=== PATIENT | male | born 1990 | race Caucasian/White ===

== ENCOUNTER 2021-03-16 16:34 | Emergency (ER) | payer OTHER, SELFPAY ==
[2021-03-16 16:38] VITALS: BP 144/99; PULSE 118; RESP 18; TEMP 37; O2SAT 99
[2021-03-16] MEDS: ZIPRASIDONE HCL 20 MG CAPSULE BY MOUTH (17:07)
--- NOTE | 2021-03-16 17:10 | PC.NURSE ---
PT WONDERING HALLS, PT ASKED TO REMAIN IN HIS ROOM PT LOOKING AROUND PARANOID AND CONTINUES TO SAY HE IS NOT SAFE AND SOMEONE IS GOING TO KILL HIM. PT WALKED TO BATHROOM TO ATTEMPT TO OBTAIN URINE SAMPLE, PT UNABLE TO PROVIDE AT THIS TIME.
[2021-03-16 17:29] LABS: Basophils Absolute Auto 0.04 K/mm3 (0.00-0.10); Basophils Percent Auto 0.4 % (0.0-1.0); Eosinophils Absolute Auto 0.07 K/mm3 (0.02-0.50); Eosinophils Percent Auto 0.7 % (1.0-6.0); Hemoglobin 14.3 g/dL (14.0-18.0); Immature Granulocyte Absolute 0.03 K/mm3 (0.00-0.00); Immature Granulocyte Percent A 0.3 % (0.0-0.0); Lymphocytes Absolute Auto 2.48 K/mm3 (1.10-4.50); Lymphocytes Percent Auto 23.6 % (18.0-42.0); Mean Corpuscular Hemoglobin 28.2 pg (27.0-31.0); Mean Corpuscular Volume 82.8 fL (78.0-102.0); Mean Platelet Volume 8.7 fl (8.7-11.0); Monocytes Absolute Auto 1.33 K/mm3 (0.10-0.90); Monocytes Percent Auto 12.7 % (2.0-11.0); Neutrophils Absolute Auto 6.6 K/mm3 (1.7-7.2); Neutrophils Percent Auto 62.3 % (50.0-70.0); Platelet Count Result 286 K/mm3 (150-420); Red Blood Count 5.07 M/mm3 (4.70-6.10); Red Cell Distribution Width 12.7 % (11.6-14.4); White Blood Count 10.5 K/mm3 (4.8-10.8)
--- NOTE | 2021-03-16 17:45 | PC.NURSE ---
PT CALLING 911 FROM HIS CELL PHONE BECAUSE HE STATES HE IS NOT SAFE HERE AND WANTS TO LEAVE AND GO SOMEWHERE ELSE. PT SPEAKING WITH [place] [id number], THIS RN WITH PT TO MAKE DISPATCHER AWARE PT IS INDEED SAFE AND NOT IN ANY HARMS WAY. CALL TRANSFERRED TO [facility] AND REQUEST FOR OFFICER TO COME TO ED TO SPEAK WITH PT MADE. [place] [id number] MECHANICAL DEVELOPMENT ENGINEER STAYED ON PHONE AND SPOKE WITH PT UNTIL PD ARRIVED.
[2021-03-16 17:51] LABS: Acetaminophen < 2 ug/mL (10-30); Alanine Aminotransferase 24 U/L (16-63); Albumin Level 4.4 g/dL (3.4-5.0); Alkaline Phosphatase 71 U/L (46-116); Anion Gap 11 mmol/L (8-16); Aspartate Amino Transferase 16 U/L (15-37); Bilirubin,Total 0.9 mg/dL (0.00-1.00); Blood Urea Nitrogen 26 mg/dL (7-18); Calcium 9.5 mg/dL (8.5-10.1); Carbon Dioxide 27 mmol/L (21-32); Chloride 103 mmol/L (98-108); Estimated Glomerular Filt Rate > 60; Ethanol < 3 mg/dL (0-6); Glucose 116 mg/dL (70-99); Osmolality Calculated 297 mOsm/kg (285-295); Potassium 3.9 mmol/L (3.5-5.1); Salicylate 0.8 mg/dL (2.8-20.0); Sodium 141 mmol/L (136-145)
[2021-03-16 18:11] LABS: Thyroid Stimulating Hormone 0.97 uIU/mL (0.36-3.74)
[2021-03-16 18:21] LABS: Appearance Urine Clear (Clear); Bilirubin Urine 1+ (Negative); Color Urine Yellow (Yellow); Glucose Urine UA Negative (Negative); Ketones Urine 2+ (Negative); Leukocyte Esterase Ur Negative (Negative); Nitrate Urine Negative (Negative); Protein Urine Negative (Negative); Specific Grav Ur >= 1.030 (1.010-1.020); Urobilinogen Urine 0.2 mg/dL (0.2-1.0); pH Urine 5.5 (5.0-8.0)
[2021-03-16 18:27] LABS: Add Urine Microscopic? YES; Bacteria Urine Trace /hpf; Blood Urine Trace (Negative); Mucus Urine Moderate /lpf; RBC Urine 0-2 /hpf (0-2); WBC Urine 0-3 /hpf (0-3)
[2021-03-16 18:28] LABS: Amphetamine Screen Urine Positive (Negative); Barbiturate Screen Urine Negative (Negative); Benzodiazepines Screen Urine Negative (Negative); Cannabinoid Screen Urine Positive (Negative); Cocaine Screen Urine Negative (Negative); Methadone Screen Urine Negative (Negative); Opiate Screen Urine Negative (Negative); Phencyclidine Screen Urine Negative (Negative)
--- NOTE | 2021-03-16 18:44 | PC.NURSE ---
PT SITTING IN CHAIR AT DOORWAY, PT TEARFUL AND KEEPS LOOK AROUND. PT AWARE MENTAL HEALTH WAS CONTACTED.
--- NOTE | 2021-03-16 19:04 | PC.NURSE ---
REPORT TO DEMETRIA VELAZQUEZ
[2021-03-16 19:10] VITALS: BP 133/88; PULSE 89; RESP 20; TEMP 36.5; O2SAT 99
--- NOTE | 2021-03-16 19:15 | PC.NURSE ---
Report received, pt sitting in doorway and then pacing room, pt tearful at this time and speaking in nonsensical sentences. Reoriented pt to POC and awaiting mental health services for eval.
[2021-03-16 20:05] LABS: SARS-CoV-2 Ag Negative (Negative)
--- NOTE | 2021-03-16 20:09 | ED.PSYCH ---
HPI - Psych General Chief Complaint: Psychiatric Symptoms Stated Complaint: AMB Time Seen by Provider: 03/16/21 16:36 Source: patient, EMS and RN notes reviewed Mode of arrival: EMS Limitations: no limitations History of Present Illness complaint: feels depressed and other (and paranoid) Onset (ago): day(s) (1) History of same: Yes Relieving factors: none Exacerbating factors: none Context: recent drug abuse Associated psychiatric symptoms: depression, racing thoughts and visual hallucinations Associated symptoms: confusion Treatments prior to arrival: none Related Data Home Medications Medication Instructions Recorded Confirmed citalopram 40 mg PO DAILY 03/16/21 03/16/21 multivitamin with folic acid 1 tablet PO DAILY 03/16/21 03/16/21 [Daily-Fatou (with folic acid)] trazodone 100 mg PO HS 03/16/21 03/16/21 Allergies Allergy/AdvReac Type Severity Reaction Status Date / Time No Known Allergies Allergy Unknown Unverified 02/25/16 17:46 Review of Systems Review of Systems: All systems reviewed & are unremarkable except as noted in HPI and below PMFSH Past Medical History Medical History Schizophrenia, acute undifferentiated Family History Family History Other Schizophrenia, acute undifferentiated Social History Social History Substance use type: amphetamines Exam Const: General: no acute distress and alert Orientation/consciousness: patient oriented x3 HENMT: Head: normal to inspection Ears: TM's normal bilaterally General nose exam: Normal external nose present and Normal nares present Mouth: Yes lip normal and Yes moist mucous membranes abnormal Teeth and gingiva: dentition normal Eyes: Conjunctivae: conjunctivae normal Pupils: Equal, round and reactive pupils present EOM: EOMs intact bilaterally Neck: Neck: normal visual inspection and no lymphadenopathy Chest: Chest palpation & inspection: normal inspection of the chest Resp: Effort & Inspection: normal respiratory effort Auscultation: clear to auscultation bilaterally Cardio: Rate: regular rate Rhythm: regular rhythm GI: GI Palp: Yes Soft to palpation (non-tender) Percussion: Yes normal to percussion : General: Yes no CVA tenderness Male General Exam: Yes normal external exam Testes: Testes normal Back/Spine/Pelvis: Back: no CVA tenderness Skin: General skin exam: normal color Neuro: General: patient oriented x3, moves all extremities, no meningeal signs, no focal motor deficits and CN's II-XI intact bilaterally Extrem: General: normal to inspection and no pedal edema Psych: Appearance: grossly normal and well kempt Thought content: Yes Paranoid delusions present and Yes Hallucination(s) present Course Course Emergency Course: pt was less talkative and paranoid during the ED stay. Reevaluation(s) Date: 03/16/21 Time: 17:35 Vital Signs Vital signs: Vital Signs Temperature 37.0 C 03/16/21 16:38 Pulse Rate 118 H 03/16/21 16:38 Respiratory Rate 18 03/16/21 16:38 Blood Pressure 144/99 H 03/16/21 16:38 Pulse Oximetry 99 03/16/21 16:38 Temperature 36.5 C 03/16/21 19:10 Pulse Rate 89 03/16/21 19:10 Respiratory Rate 20 03/16/21 19:10 Blood Pressure 133/88 03/16/21 19:10 Pulse Oximetry 99 03/16/21 19:10 MDM - Psych Differential Diagnosis Differential diagnosis: Likely acute psychosis, chronic schizophrenia, depression and acute anxiety Medical Records Attestation: I reviewed the patient's medical records. Lab Data Attestation: I reviewed the patient's lab results. Result diagrams: 03/16/21 17:22 03/16/21 17:22 Labs: Lab Results 03/16/21 03/16/21 03/16/21 Range/Units 17:22 17:22 18:17 WBC 10.5 (4.8-10.8) K/mm3 RBC 5.07 (4.70-6.10) M/mm3 Hgb 14.3 (14.0-18.0)
--- NOTE | 2021-03-16 20:22 | PC.NURSE ---
Call back from [place] and report given, paperwork and pts chart faxed to [facility].
[2021-03-16 21:30] VITALS: BP 130/85; PULSE 78; RESP 18; O2SAT 99
--- NOTE | 2021-03-16 23:06 | PC.NURSE ---
Pt is sleeping, sitter at bedside. Call back from Cherelle from [facility] and still looking for placement and acceptance for pt.
[2021-03-16 23:44] VITALS: BP 130/78; PULSE 81; RESP 18; TEMP 36.6; O2SAT 99
--- NOTE | 2021-03-16 23:53 | ECG_ITS ---
Measurements Intervals [place] Rate: 74 P: 74 WI: 183 QRS: 62 QRSD: 104 T: 41 QT: 421 QTc: 470 Interpretive Statements SINUS RHYTHM NORMAL ECG Electronically Signed On 03-17-2021 7:55:44 CDT by Merrill Gamez D.O.
--- NOTE | 2021-03-17 01:28 | PC.NURSE ---
Pt continues to sleep, close observation watching.
[2021-03-17 01:51] VITALS: BP 128/74; PULSE 77; RESP 18; TEMP 36.1; O2SAT 99
--- NOTE | 2021-03-17 04:15 | PC.NURSE ---
Pt sleeping, see sitter protocol obs sheet.
--- NOTE | 2021-03-17 06:25 | PC.NURSE ---
Pt still sleeping, no changes.
[2021-03-17 06:37] VITALS: BP 100/68; PULSE 65; RESP 18; TEMP 36.6; O2SAT 98
--- NOTE | 2021-03-17 06:45 | PC.NURSE ---
Pt awake and ambulatory to [facility]. EMS paged for pt transfer.
--- NOTE | 2021-03-17 07:13 | PC.NURSE ---
Report to [facility] for transfer to [facility].
== END 2021-03-17 07:14 ==
PROVIDERS: Emergency Provider Emergency Medicine
DX: F23 Brief psychotic disorder (principal); Z20.822 Contact with and (suspected) exposure to COVID-19
CPT/HCPCS: 36415; 80053; 80307; 81001; 84443; 85025; 87426; 93005; 99285; A9270; C9803

== ENCOUNTER 2021-06-02 17:39 | Inpatient (IN) | payer OTHER, SELFPAY ==
--- NOTE | ~2021-06-02 | CT_ITS ---
EXAMINATION: CT abdomen pelvis w con EXAM DATE: 06/04/2021 15:47 INDICATION: testicular mass/rule out metastatic disease. TECHNIQUE: Spiral CT of the abdomen and pelvis was performed following intravenous injection of 100 m L Omnipaque 350. Axial, coronal and sagittal images of the abdomen and pelvis were reviewed. The do se-length product (DLP) for this examination was 357.38 mGy-cm. The exposure was tailored according to patient size (auto mA exposure control), and iterative reconstruction (ASIR) was used as additiona l dose reduction technique. There is no prior study for comparison. FINDINGS: There is 1.8 cm lesion in the right liver lobe with small focus of peripheral nodular enhan cement suspected. This is most likely a hemangioma. Spleen, adrenal glands, pancreas are unremarkable . Gallbladder is unremarkable. No biliary obstruction. Portal and splenic veins are patent. Kidne ys enhance symmetrically. There is no hydronephrosis. The prostate is unremarkable. The bladder i s unremarkable. There is no retroperitoneal or pelvic lymphadenopathy. There are surgical changes consistent with appendectomy. The stomach and small bowel are unremarkab le. There is moderate amount of colonic stool. No free intraperitoneal gas. The heart is normal in size. There are no pericardial or pleural effusions. The lung bases are unremarkable. There are no osteoblastic or osteolytic lesions identified. Chronic L5 spondylolysis with 3 mm anterolisthesis L5 on S1. IMPRESSION: Small liver lesion, probably hemangioma. Could obtain liver MRI for confirmation, or atte ntion to this on follow-up CT if histology of primary testicular lesion is malignant. Reviewed, dictated and finalized at location A. H HAND MACHINE IMPRESSION: Small liver lesion, probably hemangioma. Could obtain liver MRI for confirmation, or attention to this on follow-up CT if histology of primary donell ticular lesion is malignant.
--- NOTE | ~2021-06-02 | XR_ITS ---
EXAMINATION: XR elbow LT min 3V EXAM DATE: 06/02/2021 20:04 INDICATION: Left arm pain, swelling, clinical concern for abscess. TECHNIQUE: Left elbow frontal, lateral with flexion, and oblique projections obtained and reviewed. There is no prior study for comparison. FINDINGS: Left elbow anterior humeral line intact. There is soft tissue swelling over the ulnar ursula e of the forearm and in the antecubital fossa. There is no suspicion of elbow joint effusion. There a re no bony erosions identified. There are no acute fractures identified. IMPRESSION: Extensive soft tissue swelling. Consider follow-up ultrasound if abscess is clinically s uspected. Reviewed, dictated and finalized at location A. IAL EDUCATION INCLUSION TEACHER IMPRESSION: Extensive soft tissue swelling. Consider follow-up ultrasound if a bscess is clinically suspected.
--- NOTE | ~2021-06-02 | US_ITS ---
EXAMINATION: US scrotum doppler DATE: 06/03/2021 14:50 INDICATION: Right testicular lump TECHNIQUE: Testicular sonogram utilizing grayscale and Doppler COMPARISON: 04/29/2013 FINDINGS: The right testis measures 4.0 x 2.3 x 3.3 cm. There is a 1.1 x 1.1 x 0.9 cm mass of the rig ht testicle with central round component. There is a hypoechoic halo with associated vascularity. The left testis measures 4.5 x 2.4 x 2.6 cm. There is normal vascular flow to both testes. The right epi didymis contains a 5 mm cyst or spermatocele. The left epididymis contains a 5 mm cyst or spermatocel e. There is no varicocele or hydrocele. IMPRESSION: 1. 1.1 cm right testicular mass, new since the comparison examination. Differential includes testicul ar malignancy, epidermoid cyst, and testicular abscess, particularly given patient's history of drug use. Reviewed, dictated and finalized at location A. HER SAWYER IMPRESSION: 1. 1.1 cm right testicular mass, new since the comparison examination. Differen tial includes testicular malignancy, epidermoid cyst, and testicular abscess, p articularly given patient's history of drug use.
[2021-06-02 17:42] VITALS: BP 119/68; PULSE 102; RESP 16; TEMP 36.3; O2SAT 98
[2021-06-02 19:40] VITALS: BP 112/85; PULSE 87; RESP 18; TEMP 36.4; O2SAT 100
[2021-06-02 20:02] LABS: Basophils Absolute Auto 0.1 K/mm3 (0.0-0.1); Basophils Percent Auto 0.6 % (0.2-1.2); Eosinophils Absolute Auto 0.9 K/mm3 (0-0.3); Eosinophils Percent Auto 8.3 % (0-4.4); Hemoglobin 14.8 g/dL (14.0-18.0); Immature Granulocyte Absolute 0.04 K/mm3 (0.00-0.031); Immature Granulocyte Percent A 0.4 % (0-0.5); Lymphocytes Absolute Auto 3.31 K/mm3 (0.9-3.2); Lymphocytes Percent Auto 32.1 % (18.3-44.2); Mean Corpuscular HGB Conc 34.4 g/dl (32-36); Mean Corpuscular Hemoglobin 29.1 pg (26-34); Mean Corpuscular Volume 84.6 fl (80-100); Mean Platelet Volume 9.2 fl (7.4-10.4); Monocytes Absolute Auto 0.9 K/mm3 (0.1-0.6); Monocytes Percent Auto 8.9 % (2.6-8.5); Neutrophils Absolute Auto 5.1 K/mm3 (1.3-6.7); Neutrophils Percent Auto 49.7 % (45.5-73.1); Platelet Count Result 275 k/mm3 (150-375); Red Blood Count 5.08 M/mm3 (4.6-6.20); Red Cell Distribution Width 13.1 % (11.5-14.5); White Blood Count 10.3 K/mm3 (4.5-10.0)
--- NOTE | 2021-06-02 20:03 | ED.SKABFB ---
HPI - Skin/Abscess/Foreign Bdy General Chief complaint: Skin/Abscess/Foreign Body <CHRISTIANO Bonilla Last Filed: 06/02/21 22:20> Stated complaint: infected vein from IV drug use <Sheree Elmore PA-C - Last Filed: 06/02/21 22:20> Time Seen by Provider: 06/02/21 19:41 <CHRISTIANO Bonilla Last Filed: 06/02/21 22:20> Source: patient <CHRISTIANO Bonilla Last Filed: 06/02/21 22:20> Mode of arrival: ambulatory <CHRISTIANO Bonilla Last Filed: 06/02/21 22:20> Limitations: no limitations <CHRISTIANO Bonilla Last Filed: 06/02/21 22:20> History of Present Illness HPI narrative: This is a 31 year old male that presents to the ER for redness and swelling of the left upper arm. Reports he is an IV drug user. Reports he has noted an area of redness and swelling to the left mid arm. Reports the area is painful. Denies fever or drainage. <CHRISTIANO Bonilla Last Filed: 06/02/21 22:20> Related Data Home medications: Home Medications Medication Instructions Recorded Confirmed citalopram 40 mg PO DAILY 03/16/21 03/16/21 multivitamin with folic acid 1 tablet PO DAILY 03/16/21 03/16/21 [Daily-Fatou (with folic acid)] trazodone 100 mg PO HS 03/16/21 03/16/21 <CHRISTIANO Bonilla Last Filed: 06/02/21 22:20> Allergies/Adverse reactions: Allergies Allergy/AdvReac Type Severity Reaction Status Date / Time No Known Allergies Allergy Unknown Unverified 02/25/16 17:46 <CHRISTIANO Bonilla Last Filed: 06/02/21 22:20> Review of Systems Review of Systems: CONSTITUTIONAL: Denies fever SKIN: Reports erythema and warmth <CHRISTIANO Bonilla Last Filed: 06/02/21 22:20> All systems reviewed & are unremarkable except as noted in HPI and below <Sheree Elmore PA-C - Last Filed: 06/02/21 22:20> PMFSH Past Medical History Medical History: Medical History Schizophrenia, acute undifferentiated <Sheree Elmore PA-C - Last Filed: 06/02/21 22:20> Family History Family History: Family History Other Schizophrenia, acute undifferentiated <CHRISTIANO Bonilla Last Filed: 06/02/21 22:20> Social History Social History: Social History Substance use type: amphetamines <CHRISTIANO Bonilla Last Filed: 06/02/21 22:20> Exam Narrative: GENERAL: Well-appearing, well-nourished, and in no acute distress. HEAD: Normocephalic, atraumatic. EYES: EOMI. CHEST: No respiratory distress. HEART: Regular rate EXTREMITIES: Normal range of motion. 4cm area of erythema with central fluctuance to the left medial elbow. There is lymphangitic streaking to the upper and lower arm. Normal radial pulses. Normal sensation SKIN: Warm, dry, no rash. NEURO: No focal deficits. Alert and oriented x3. PSYCH: Normal mood and affect <CHRISTIANO Bonilla Last Filed: 06/02/21 22:20> Course ANALYTICAL SCIENCES DIRECTOR/PA Physician Supervision For this encounter, I have reviewed the PA documentation, treatment plan and medical decision making: And I have had [id number] time with the patient. Discussed with patient need for admission all questions were answered patient in agreement at this time <Alonso Mcintyre DO - Last Filed: 06/02/21 23:09> Consultations Consultation #1: Spoke with Dr. Vázquez about patient and work-up who accepts admission <CHRISTIANO Bonilla Last Filed: 06/02/21 22:20> Date: 06/02/21 <CHRISTIANO oBnilla Last Filed: 06/02/21 22:20> Time: 22:00 <Sheree Elmore PA-C - Last Filed: 06/02/21 22:20> Vital Signs Vital signs: Vital Signs Temperature 97.3 F L 06/02/21 17:42 Pulse Rate 102 H 06/02/21 17:42 Respiratory Rate 16 06/02/21 17:42 Blood Pressure 119/68 06/02/21 17:42 Pulse Oximetry 98 06/02/21 17:42 Temperature 9
[2021-06-02 20:19] LABS: Anion Gap 8 mmol/L (8-16); Blood Urea Nitrogen 20 mg/dL (9-20); Carbon Dioxide 27 mmol/L (22-30); Chloride 102 mmol/L (98-107); Estimated CRCL calculation 104 ml/min; Estimated Glomerular Filt Rate > 60; Glucose 114 mg/dL (65-110); Sodium 137 mmol/L (137-145)
[2021-06-02 20:24] LABS: INR 0.9; Prothrombin Time 11.6 Seconds (11.1-14.7)
[2021-06-02 20:25] LABS: Calcium 9.7 mg/dL (8.4-10.2); Potassium 4.4 mmol/L (3.4-5.0)
[2021-06-02 20:25] LABS: Partial Thromboplastin Time 29.9 SECONDS (22.3-36.8)
[2021-06-02 20:27] LABS: D Dimer 0.31 ug/mL (<0.48)
[2021-06-02 20:31] LABS: Erythrocyte Sedimentation Rate 21 mm/hr (0-20)
--- NOTE | 2021-06-02 22:15 | PM.IMHP ---
H&P: HPI History of Present Illness Date/Time: 06/02/21 22:15 Chief Complaint: Abscess Narrative: This is a 31-year-old male with past medical history significant for schizophrenia, multi substance abuse, used to smoke a pack of cigarettes daily but now is down to only few cigarettes and there are times that he does not smoke in several days, IV drug user, patient injects meth states that he has been doing it for the last 6 months or so and usually every 10 or 12 days he would inject in his antecubital veins, patient presented to emergency room due to not feeling well, having night sweats, chills, subjective fevers, patient also had abscess formation in the left forearm with redness and swelling and streaking up his arm. Patient denies any nausea, any vomiting ,any abdominal pain, any shortness of breath, cough or sputum production. In emergency room patient had his abscess drained. Patient is being admitted for IV antibiotic therapy for further evaluation, management and treatment. Review of Systems Review of Systems: Patient presented to the emergency room due to not feeling well having night sweats for having chills having left forearm abscess formation with swelling tenderness and redness, body aches and pains. Constitutional: Constitutional: Reports body ache(s), Reports chills, Reports fever(s) (Subjective), Reports malaise and Reports night sweats Eyes: Eyes: Denies change in vision ENT: Denies dysphagia, Denies vertigo, Denies dizziness, Denies nasal congestion, Denies nasal discharge, Denies nasal obstruction and Denies odynophagia Cardiovascular: Cardiovascular: Denies irregular heart rhythm, Denies claudication, Denies leg edema, Denies radiating jaw, neck or arm pain, Denies palpitations, Denies dyspnea, Denies dyspnea on exertion and Denies orthopnea Respiratory: Respiratory: Denies cough and Denies dyspnea Gastrointestinal: Gastrointestinal: Denies abdominal pain, Denies dyspepsia, Denies heartburn, Denies diarrhea, Denies nausea and Denies vomiting Genitourinary: Genitourinary: Denies dysuria and Reports testicular mass Musculoskeletal: Musculoskeletal: Denies back pain, Reports myalgias, Denies arthralgias, Denies joint swelling and Denies limited range of motion Integumentary/Breasts: Comments: Right forearm abscess Neurologic: Denies vertigo, Denies dizziness, Denies focal weakness and Denies Sensory deficit (Neuro) Psychiatric: Psychiatric: Reports no additional psychiatric complaints and Reports as per HPI Endocrine: Endocrine: Reports no additional endocrine complaints and Reports as per HPI Hematologic/Lymphatic: Hematologic/Lymphatic: Reports no additional hematologic/lymphatic complaints and Reports as per HPI Allergic/Immunologic: Allergic/Immunologic: Reports no additional allergic/immunologic complaints and Reports as per HPI PMFSH Past Medical History Medical History Schizophrenia, acute undifferentiated Family History Family History Other Schizophrenia, acute undifferentiated Social History Social History Substance use type: amphetamines Meds Home Medications and Allergies Home Medications Medication Instructions Recorded Confirmed Type citalopram 40 mg PO DAILY 03/16/21 03/16/21 History multivitamin with folic acid 1 tablet PO DAILY 03/16/21 03/16/21 History [Daily-Fatou (with folic acid)] trazodone 100 mg PO HS 03/16/21 03/16/21 History Allergies Allergy/AdvReac Type Severity Reaction Status Date / Time No Known Allergies Allergy Unknown Unverified 02/25/16 17:46 Vital Signs Vital Signs - 24 hr 06/02/21 17:42 06/02/21 19:40 Temperature 97.3 F L 97.5 F L Pulse Rate 102 H 87 Respiratory Rate 16 18 Blood Pressure 119/68 112/85 Pulse Oximetry 98 100 Exam Narrative: Patient is sitting in [facility]
[2021-06-02 22:57] VITALS: BP 122/83; PULSE 82; RESP 16; O2SAT 99
--- NOTE | 2021-06-03 00:45 | ADMGEN ---
This patient, Rickey Maurice, was admitted to Medical Room 349-01. Patient/family oriented to hospital policies and general routines including ID bracelet, bed and alarms, visiting hours, pain management, procedures, bathroom and other care routines, personal items, smoking policy, room service/diet, and visiting hours. Information on how to activate the Rapid Response Team has been discussed. Patient/Family are encouraged to report perceived risks to care and to ask questions if they do not understand what they are told or what they should do.
[2021-06-03 01:03] VITALS: BMI 25.4
[2021-06-03 01:17] VITALS: BP 128/69; PULSE 88; RESP 16; TEMP 36.6; O2SAT 100
[2021-06-03] MEDS: diphenhydrAMINE HCl INJ 50 MG/ML VIAL 25 MG IV PUSH (02:07)
[2021-06-03 06:00] LABS: Estimated CRCL calculation 77 ml/min; Estimated Glomerular Filt Rate > 60
[2021-06-03 06:29] VITALS: BP 100/53; PULSE 69; RESP 16; TEMP 36.6; O2SAT 100
--- NOTE | 2021-06-03 14:17 | PM.IMPN ---
Progress Note: A&P Assessment and Plan (1) Abscess of skin or subcutaneous tissue: Qualifiers: Laterality: left Site of cutaneous abscess: extremity Site of cutaneous abscess of extremity: upper extremity Qualified Code(s): L02.414 - Cutaneous abscess of left upper limb Code(s): L02.91 - Cutaneous abscess, unspecified Status: Acute Assessment and Plan: abscess improving but continues to have swelling and purulent discharge - will continue IV vancomycin - await wound cultures - will do 1/4 iodoform gauze packing daily - blood cultures pending - likely due to IV drug use (2) Cellulitis: Qualifiers: Laterality: left Site of cellulitis: extremity Site of cellulitis of extremity: upper extremity Qualified Code(s): L03.114 - Cellulitis of left upper limb Code(s): L03.90 - Cellulitis, unspecified Status: Acute Assessment and Plan: as above, continue vancomycin (3) Polysubstance abuse: Code(s): F19.10 - Other psychoactive substance abuse, uncomplicated Status: Acute Assessment and Plan: Follow-up in outpatient setting (4) IVDU (intravenous drug user): Code(s): F19.90 - Other psychoactive substance use, unspecified, uncomplicated Status: Acute Assessment and Plan: Patient uses injectable meth - will test for HIV and hepatitis with tomorrow's labs (5) Schizophrenia, acute undifferentiated: Code(s): F20.3 - Undifferentiated schizophrenia Status: Acute Assessment and Plan: continue Seroquel (6) Scrotal swelling: Code(s): N50.89 - Other specified disorders of the male genital organs Status: Acute Assessment and Plan: patient states this been going on for a while and he had an ultrasound done outpatient but never got the results because he was afraid he had cancer. Now that he has an abscess and is an IV drug user, we will do another ultrasound to ensure no abscess or other pathology Time Spent With Patient Time with patient: 25 - 35 minutes Subjective Date/time seen: 06/03/21 14:17 Interval history: Pt is a 31-year-old male here for arm abscess. patient was seen today and states the erythema has improved but it is still swollen. He has no fevers, chills, night sweats, chest pain or shortness of breath. He states he has a swelling in his right testicle that has been there for a while. This was evaluated outpatient but he was too afraid to call for the results because he was worried it would be cancer. He has no history of hepatitis C or HIV but would like to be tested. Review of Systems Review of Systems: All systems reviewed & are unremarkable except as noted in HPI and below Exam Narrative: General: Well developed well nourished patient in NAD HEENT: normocephalic Neck: supple Neuro: Alert and oriented x4 CV:RRR Resp:CTA Abd: Soft, non distended. No pain to palpation. Positive bowel sounds Extremities: abscess to the left arm near the antecubital cleft on the medial side. There is a small incision with purulent discharge. This was probed and expressed a few cc of further purulent discharge. Objective Data Vital Signs Vital Signs: Vital Signs - 24 hr 06/02/21 17:42 06/02/21 19:40 06/02/21 22:57 Temperature 97.3 F L 97.5 F L Pulse Rate 102 H 87 82 Respiratory Rate 16 18 16 Blood Pressure 119/68 112/85 122/83 Pulse Oximetry 98 100 99 06/03/21 01:17 06/03/21 06:29 Temperature 97.9 F 98 F Pulse Rate 88 69 Respiratory Rate 16 16 Blood Pressure 128/69 100/53 L Pulse Oximetry 100 100 Intake/Output Intake/Output: Intake & Output 05/31/21 06/01/21 06/02/21 06/03/21 23:59 23:59 23:59 23:59 Intake Total 730 Output Total 100 Balance 630 Meds/Results Medications: Active Medications Generic Name Dose Route Start Last Admin Trade Name Freq PRN Reason Stop Dose Admin Citalopram Hydrobromide
[2021-06-03 15:20] VITALS: BP 92/52; PULSE 85; RESP 16; TEMP 36.8; O2SAT 96
[2021-06-03] MEDS: QUEtiapine FUMARATE 25 MG TABLET 50 MG PO (20:38)
[2021-06-03] MEDS: traZODone HCL 50 MG TABLET 100 MG PO (20:39)
[2021-06-03 22:00] VITALS: BP 141/64; PULSE 78; RESP 21; TEMP 36.3; O2SAT 100
--- NOTE | 2021-06-04 | ECHO_ITS ---
Patient Info Name: Rickey Maurice Age: 31 years : 1990 Gender: Male Ht: 66 in Wt: 158 lbs BSA: 1.84 m2 HR: 69 bpm BP: 101 / 56 mmHg Heart Rhythm: Sinus Rhythm Technical Quality: Good Exam Date: 06/04/2021 1:38 PM Exam Location: [facility] Card Pulmonary Patient Status: Inpatient Admit Date: 06/02/2021 Staff Ordering Physician: Irma Davies PA-C Traffic Engineering Technician: Joann Rowan RDCS Attending Provider: Irma Davies PA-C Referring Physician: Samson OLSON; Exam Type: CA echo doppler color flow Study Info Indications - MULTIPLE ABCESSES - IV DRUG USE Complete two-dimensional, color flow and Doppler transthoracic echocardiogram is performed. Summary 1. Complete two-dimensional, color flow and Doppler transthoracic echocardiogram is performed. 2. No infective vegetations identified. 3. Unremarkable echocardiogram. Left Ventricle Left ventricular chamber dimension is normal. Left ventricular systolic function is normal, estimated at 55-60%. The left ventricular diastolic function is normal. Right Ventricle Right ventricular chamber dimension is normal. Left Atria Left atrial chamber dimension is normal. Right Atria Right atrial chamber dimension is normal. Aortic Valve The aortic valve is normal. Pulmonic Valve The pulmonic valve is normal. Mitral Valve The mitral valve has normal leaflets. Tricuspid Valve The tricuspid valve leaflets are normal. Pericardium/Pleural The pericardium appears normal. Aorta The aortic root size at the sinus of Valsalva is normal. Left Ventricular Outflow Tract Name Value Normal LVOT 2D LVOT Diameter 2.0 cm LVOT Doppler LVOT Peak Gradient 3 mmHg LVOT Mean Gradient 2 mmHg LVOT VTI 18 cm LVOT VTI/AV VTI Ratio 1.0 LVOT Stroke Volume 56 ml LVOT CO 4.1 l/min LVOT CI 2.2 l/min/m2 Pulmonic Valve Name Value Normal RVOT Doppler RVOT Peak Gradient 3 mmHg PV Doppler PV Peak Gradient 4 mmHg Mitral Valve Name Value Normal MV Doppler MV Decel [place] 353 cm/s2 MV PHT 61 ms MV Area (PHT) 3.6 cm2 4.0-5.0 MV Diastolic Function MV E Peak V
[2021-06-04 06:00] VITALS: BP 101/56; PULSE 65; RESP 21; TEMP 36.6; O2SAT 100
[2021-06-04] MEDS: CITALOPRAM HYDROBROMIDE 20 MG TABLET 40 MG PO (09:02)
[2021-06-04 11:12] LABS: Basophils Absolute Auto 0.1 K/mm3 (0.0-0.1); Basophils Percent Auto 0.8 % (0.2-1.2); Eosinophils Absolute Auto 0.8 K/mm3 (0-0.3); Eosinophils Percent Auto 9.1 % (0-4.4); Hemoglobin 14.7 g/dL (14.0-18.0); Immature Granulocyte Absolute 0.06 K/mm3 (0.00-0.031); Immature Granulocyte Percent A 0.7 % (0-0.5); Lymphocytes Absolute Auto 2.94 K/mm3 (0.9-3.2); Lymphocytes Percent Auto 33.9 % (18.3-44.2); Mean Corpuscular HGB Conc 33.4 g/dl (32-36); Mean Corpuscular Hemoglobin 28.7 pg (26-34); Mean Corpuscular Volume 85.9 fl (80-100); Monocytes Absolute Auto 1.1 K/mm3 (0.1-0.6); Monocytes Percent Auto 13.2 % (2.6-8.5); Neutrophils Absolute Auto 3.7 K/mm3 (1.3-6.7); Neutrophils Percent Auto 42.3 % (45.5-73.1); Platelet Count Result 286 k/mm3 (150-375); Red Blood Count 5.12 M/mm3 (4.6-6.20); Red Cell Distribution Width 13.3 % (11.5-14.5); White Blood Count 8.7 K/mm3 (4.5-10.0)
[2021-06-04 11:25] LABS: Anion Gap 8 mmol/L (8-16); Blood Urea Nitrogen 18 mg/dL (9-20); CRP 1.1 mg/dL (<1.0); Calcium 9.1 mg/dL (8.4-10.2); Carbon Dioxide 30 mmol/L (22-30); Chloride 101 mmol/L (98-107); Estimated CRCL calculation 85 ml/min; Estimated Glomerular Filt Rate > 60; Glucose 101 mg/dL (65-110); Potassium 4.1 mmol/L (3.4-5.0); Sodium 139 mmol/L (137-145)
[2021-06-04 11:59] LABS: Vancomycin Trough 7.9 ug/mL (10.0-20.0)
[2021-06-04 12:03] LABS: HIV 1/2 Ab P24 Ag Result Negative (Negative)
[2021-06-04 12:25] LABS: Hepatitis B Surface Antigen Negative (Negative)
[2021-06-04 12:30] LABS: HAV RESULT Negative (Negative); Hepatitis B Core IgM Result Negative (Negative)
[2021-06-04 12:42] LABS: Hepatitis C Virus Antibody Negative (Negative)
[2021-06-04 13:07] LABS: Lactate Dehydrogenase 295 U/L (313-618)
--- NOTE | 2021-06-04 15:01 | PM.IMPN ---
Progress Note: A&P Assessment and Plan (1) Abscess of skin or subcutaneous tissue: Qualifiers: Laterality: left Site of cutaneous abscess: extremity Site of cutaneous abscess of extremity: upper extremity Qualified Code(s): L02.414 - Cutaneous abscess of left upper limb Code(s): L02.91 - Cutaneous abscess, unspecified Status: Acute Assessment and Plan: Abscess improving but continues to have swelling and purulent discharge - will continue IV vancomycin and likely switch to something oral tomorrow -wound cx no gowth to date with many WBC - will do 1/4 iodoform gauze packing daily, it was not done yesterday but RN today says she will make sure it is done and will show pt how to do it. - blood cultures NGTD - likely due to IV drug use (2) Cellulitis: Qualifiers: Laterality: left Site of cellulitis: extremity Site of cellulitis of extremity: upper extremity Qualified Code(s): L03.114 - Cellulitis of left upper limb Code(s): L03.90 - Cellulitis, unspecified Status: Acute Assessment and Plan: as above, continue vancomycin (3) Polysubstance abuse: Code(s): F19.10 - Other psychoactive substance abuse, uncomplicated Status: Acute Assessment and Plan: Follow-up in outpatient setting (4) IVDU (intravenous drug user): Code(s): F19.90 - Other psychoactive substance use, unspecified, uncomplicated Status: Acute Assessment and Plan: Patient uses injectable meth -HIV and hep neg (5) Schizophrenia, acute undifferentiated: Code(s): F20.3 - Undifferentiated schizophrenia Status: Acute Assessment and Plan: continue Seroquel (6) Testicular mass: Code(s): N50.89 - Other specified disorders of the male genital organs Status: Acute Assessment and Plan: US shows a 1.1 cm mass which could be malignant, epidermoid cyst, or testicular abscess. Abscess appears less likely since his CRP and white blood cell count is normal but definitely still in the differential. Alpha fetoprotein and hCG has been ordered to rule out testicular cancer. Urology has been consulted and also ordered a abdominal pelvis CT. I appreciate their further recommendations Subjective Date/time seen: 06/04/21 15:01 Interval history: Pt is a 31-year-old male here for arm abscess. patient was seen today and states the erythema has improved but it is still swollen. He has no fevers, chills, night sweats, chest pain or shortness of breath. He states he has a swelling in his right testicle is unchanged. He is eating and drinking well. no diarrhea. Exam Narrative: General: Well developed well nourished patient in NAD HEENT: normocephalic Neck: supple Neuro: Alert and oriented x4 CV:RRR Resp:CTA Abd: Soft, non distended. No pain to palpation. Positive bowel sounds Extremities: abscess to the left arm near the antecubital cleft on the medial side is about the same as yesterday. Not packed by RN yesterday. Erythema resolved. gu: deferred Objective Data Vital Signs Vital Signs: Vital Signs - 24 hr 06/03/21 15:20 06/03/21 22:00 06/04/21 06:00 Temperature 98.2 F 97.4 F L 97.8 F Pulse Rate 85 78 65 Respiratory Rate 16 21 H 21 H Blood Pressure 92/52 L 141/64 H 101/56 L Pulse Oximetry 96 100 100 Intake/Output Intake/Output: Intake & Output 06/01/21 06/02/21 06/03/21 06/04/21 23:59 23:59 23:59 23:59 Intake Total 2250 1270 Output Total 100 Balance 2150 1270 Meds/Results Medications: Active Medications Generic Name Dose Route Start Last Admin Trade Name Freq PRN Reason Stop Dose Admin Citalopram Hydrobromide 40 mg 06/04/21 10:20 06/04/21 09:02 Citalopram Hydrobromide 20 Mg Tablet PO 40 mg DAILY KIERA Administration Enoxaparin Sodium 40 mg 06/03/21 10:20 06/04/21 09:02 Enoxaparin 40 Mg/0.4 Ml Syringe SUB-Q Not Given DAILY KIEAR Vancomycin HC
--- NOTE | 2021-06-04 16:03 | WPDURCON ---
Assessment and Plan Assessment and plan (1) Testicular mass: Code(s): N50.89 - Other specified disorders of the male genital organs Status: Acute Assessment and Plan: Awaiting Silvio feto protein and HCG tumor markers, as well as CT results to rule out metastatic disease. D/t his history of IV drug use and infection secondary to this, it is possible this may be infectious versus malignant. Since it has improved significantly in the past few weeks, Dr. Lipscomb and I discussed keeping him on antibiotics and re-imaging him in one month to further evaluate. If it is still present in one month, he will plan to do a right orchiectomy at that time. CT scan results are pending, Dr. Lipscomb will also do an assessment at the bedside. Urology Consult Note HPI Date Seen: 06/04/21 Requesting Physician: Irma Davies PA-C Primary Care Provider: UNKNOWN,DOCTOR Consult Narrative Narrative: Rickey Maurice is a 31 year old male who presented to the ER for left arm swelling and redness. He is an IV drug user. He is afebrile and WBC is 8.7, H&H is stable and creatinine is 1.00. He is being treated with Vancomycin for his noted infection of the left arm. We were consulted d/t a notable right testicular mass found on US. He reports that the mass has been there for 1.5 years, but was very large a month ago and got much smaller in the past few weeks. It measures 1.1cm in the right testicle. There is only one other comparison US from 2013 where it isn't visible. A CT scan was ordered of abdomen and pelvis to rule out metastatic disease d/t this being a solid testicular mass, as well as an LDH, Silvio feto protein and HCG tumor marker. LDH was 295. The other two tests and CT are pending. Review of Systems Cardiovascular: Cardiovascular: Denies chest pain Respiratory: Respiratory: Reports no additional respiratory complaints Gastrointestinal: Gastrointestinal: Denies abdominal pain, Denies nausea and Denies vomiting Genitourinary: Genitourinary: Denies hematuria, Reports genital pain, Denies dysuria, Denies flank pain, Reports testicular mass, Reports testicular pain, Denies urinary hesitancy and Denies urinary urgency [facility] Past Medical History Medical History Schizophrenia, acute undifferentiated Family History Family History Other Schizophrenia, acute undifferentiated Social History Social History Smoking packs per day: 1 Smoking cigarettes per day: 20.0 Years smoked: 14 Smoking pack-years: 14.00 Smoking status: Current some day smoker Tobacco type: cigarettes Alcohol intake: former Substance use type: amphetamines Last use: 05/28/21 Spiritual care concerns: No Meds Home Medications and Allergies Home Medications Medication Instructions Recorded Confirmed Type citalopram 40 mg PO DAILY 03/16/21 06/03/21 History trazodone 100 mg PO HS 03/16/21 06/03/21 History quetiapine [Seroquel] 50 mg PO HS 06/03/21 06/03/21 History Allergies Allergy/AdvReac Type Severity Reaction Status Date / Time No Known Allergies Allergy Unknown Verified 06/03/21 00:56 Vital Signs Vital Signs - 24 hr 06/03/21 22:00 06/04/21 06:00 Temperature 97.4 F L 97.8 F Pulse Rate 78 65 Respiratory Rate 21 H 21 H Blood Pressure 141/64 H 101/56 L Pulse Oximetry 100 100 Exam Resp: Effort & Inspection: tachypneic Cardio: Rate: regular rate GI: GI Palp: Yes Soft to palpation and No Tenderness to palpation present (GI) : General: Yes no CVA tenderness Testes: testicular mass on the right firm and tender; not mobile and not warm Extrem: General: no edema Results Labs CBC & Chem 7: 06/04/21 11:04 06/04/21 11:04 Labs: Short CBC 06/04/21 Range/Units 11:04 WBC 8.7 (4.5-10.0) K/mm3 Hgb
[2021-06-04 17:42] VITALS: BP 107/41; PULSE 81; RESP 20; TEMP 36.7; O2SAT 100
[2021-06-04] MEDS: traZODone HCL 50 MG TABLET 100 MG PO (21:40)
[2021-06-04] MEDS: QUEtiapine FUMARATE 25 MG TABLET 50 MG PO (21:40)
[2021-06-04 22:00] VITALS: BP 132/60; PULSE 91; RESP 16; TEMP 36.6; O2SAT 100
[2021-06-05 06:00] VITALS: BP 86/43; PULSE 65; RESP 18; TEMP 35.7; O2SAT 100
[2021-06-05 06:00] LABS: Hematocrit 40.7 % (42.0-52.0); Hemoglobin 13.6 g/dL (14.0-18.0); Mean Corpuscular HGB Conc 33.4 g/dl (32-36); Mean Corpuscular Hemoglobin 28.5 pg (26-34); Mean Corpuscular Volume 85.1 fl (80-100); Platelet Count Result 253 k/mm3 (150-375); Red Blood Count 4.78 M/mm3 (4.6-6.20); Red Cell Distribution Width 13.2 % (11.5-14.5); White Blood Count 7.7 K/mm3 (4.5-10.0)
[2021-06-05 06:15] LABS: Anion Gap 8 mmol/L (8-16); Blood Urea Nitrogen 14 mg/dL (9-20); Calcium 8.9 mg/dL (8.4-10.2); Carbon Dioxide 29 mmol/L (22-30); Chloride 103 mmol/L (98-107); Estimated CRCL calculation 77 ml/min; Estimated Glomerular Filt Rate > 60; Glucose 106 mg/dL (65-110); Potassium 4.2 mmol/L (3.4-5.0); Sodium 140 mmol/L (137-145)
[2021-06-05] MEDS: SILVERGEL (ELTA) 45 ML 1 APPLIC TOPICAL (09:05)
[2021-06-05] MEDS: CITALOPRAM HYDROBROMIDE 20 MG TABLET 40 MG PO (09:05)
--- NOTE | 2021-06-05 11:53 | PM.DS ---
DS: Admitting Diagnosis Discharge Date 06/05/21 Admitting Diagnosis abscess DS: Discharge Diagnosis Discharge Diagnosis (1) Abscess of skin or subcutaneous tissue: Qualifiers: Laterality: left Site of cutaneous abscess: extremity Site of cutaneous abscess of extremity: upper extremity Qualified Code(s): L02.414 - Cutaneous abscess of left upper limb Code(s): L02.91 - Cutaneous abscess, unspecified Status: Acute Assessment and Plan: Abscess improving with treatment. Erythema resolved. -He received vanc while hospitalized and transitioned to bactrim at discharge -he is to continue packing the wound. He was given the materials and instructed how to do it -he has no pcp but is going to try and establish with one for follow up with this. worst case, he is going to go to for f/u if needed. -wound cx no growth but with many WBC - will continue 1/4 iodoform gauze packing daily - blood cultures NGTD and will be monitored until finalized - likely due to IV drug use (2) Cellulitis: Qualifiers: Laterality: left Site of cellulitis: extremity Site of cellulitis of extremity: upper extremity Qualified Code(s): L03.114 - Cellulitis of left upper limb Code(s): L03.90 - Cellulitis, unspecified Status: Acute Assessment and Plan: as above, continue bactrim outpt (3) Polysubstance abuse: Code(s): F19.10 - Other psychoactive substance abuse, uncomplicated Status: Acute Assessment and Plan: Follow-up in outpatient setting (4) IVDU (intravenous drug user): Code(s): F19.90 - Other psychoactive substance use, unspecified, uncomplicated Status: Acute Assessment and Plan: Patient uses injectable meth -HIV and hep neg (5) Schizophrenia, acute undifferentiated: Code(s): F20.3 - Undifferentiated schizophrenia Status: Acute Assessment and Plan: continue Seroquel (6) Testicular mass: Code(s): N50.89 - Other specified disorders of the male genital organs Status: Acute Assessment and Plan: US shows a 1.1 cm mass which could be malignant, epidermoid cyst, or testicular abscess. Abscess appears less likely since his CRP and white blood cell count is normal but definitely still in the differential. Alpha fetoprotein and hCG has been ordered to rule out testicular cancer. Urology has been consulted and plan to follow up with him in the office and if it is unchanged or testing shows possible carcinoma this will be surgically excised. Depending on those results, may need repeat abdominal CT or MRI. He was given their information about follow up and I stressed the importance of following up with them. DS: Summary Hospital Course Hospital Course: dos 06/05/21 patient is a 31-year-old male with a history of IV drug use who presented emergency room with erythema and swelling of his left elbow found to have an abscess. The abscess was drained in the ER and the patient was admitted due to erythema and streaking around the area. He was placed on vancomycin IV and this improved greatly. His abscess improved as well and was packed with iodoform gauze. He is going to continue packing outpatient. his white blood cell count and CRP were normal at discharge. Blood cultures had no growth to date but will be monitored until finalized. While he was here, the patient told me that he has a mass in his right testicle and an ultrasound was performed. ultrasound showed a 1.1 cm mass with a differential of malignancy, epidermoid cyst or testicular abscess. Abscess seem less likely due to no pain, erythema to the area, and no fevers or lab abnormalities. Urology was consulted and ordered hCG and alpha fetoprotein which is still pending. They also ordered a abdominal CT which showed likely granuloma of the liver but cannot rule out metastatic disease. their plan is to follow him up in 1 month in t
[2021-06-05 12:02] VITALS: BP 107/58
[2021-06-08 16:23] LABS: HCG Tumor Marker <3 mIU/mL (<5)
[2021-06-09 16:32] LABS: Alpha Fetoprotein Tumor Marker 2.6 ng/mL (<6.1)
--- NOTE | 2021-06-15 11:28 | PC.NURSE ---
Blood cx are negative. AFP and HCG are both WNL.
== END 2021-06-05 14:00 | disposition home or self-care (01) | DRG 383 ==
LOC: ANHED 22:20 → ANH3MED 06-03 00:06
PROVIDERS: Nurse Practitioner Adult Health; Physician Assistant; Admitting Provider Internal Medicine; Emergency Provider Emergency Medicine; Visit Provider Family Medicine
DX: L02.414 Cutaneous abscess of left upper limb (principal); L03.114 Cellulitis of left upper limb; F19.10 Other psychoactive substance abuse, uncomplicated; F20.3 Undifferentiated schizophrenia; N50.89 Other specified disorders of the male genital organs; F17.210 Nicotine dependence, cigarettes, uncomplicated; Z79.899 Other long term (current) drug therapy
CPT/HCPCS: 10060; 36415; 73080; 74177; 76870; 80048; 80074; 80202; 82105; 82565; 83615; 84702; 85025; 85027; 85380; 85610; 85652; 85730; 86140; 86703; 87040; 87070; 87205; 93306; 93976; 96365; 96366; 96375; 99285; A9270; G0378; G0379; G0432; J1200; J1650; J3370; Q9967

== ENCOUNTER 2021-07-14 14:45 | Emergency (ER) | payer OTHER, SELFPAY ==
[2021-07-14 14:53] VITALS: BP 135/89; PULSE 113; RESP 18; TEMP 36.4; O2SAT 100
--- NOTE | 2021-07-14 15:07 | PC.NURSE ---
pt states he recently had increased drug use. States he has used LSD, speed, and other due to recent stressors.
--- NOTE | 2021-07-14 15:34 | ED.GENADULT ---
HPI - General Adult General Chief complaint: Anxiety Stated complaint: psychiatric symptoms Time Seen by Provider: 07/14/21 15:14 Source: patient and RN notes reviewed Mode of arrival: ambulatory Limitations: no limitations History of Present Illness HPI narrative: Patient is a 31-year-old male who presents noting that he has been on a meth binge with history of methamphetamine use notes that he saw his dad today who is dying from cancer who is also estranged from which has resulted in an anxiety attack patient denies any suicidal or homicidal ideation presents nondistressed does not take anything for his symptoms nor is he seeing primary care and he is actually noting that he is planning to turn himself in for a felony warrant [place] and plans to check himself into rehab after serving his time in [place] patient on arrival is nondistressed patient appears anxious Related Data Home Medications Medication Instructions Recorded Confirmed quetiapine 50 mg PO TID 07/14/21 07/14/21 trazodone 100 mg PO DAILY 07/14/21 07/14/21 Allergies Allergy/AdvReac Type Severity Reaction Status Date / Time cephalexin Allergy Unknown Verified 06/30/17 21:20 Review of Systems Review of Systems: All systems reviewed & are unremarkable except as noted in HPI and below PMFSH Social History Social History (Updated 07/14/21 @ 15:36 by Jarrett Garber PA-C) Social History: Amphetamine use Exam Narrative: GENERAL: Well-appearing, well-nourished, and in no acute distress. HEAD: Normocephalic, atraumatic. EYES: PERRLA and EOMI. ENT: Nares clear, no rhinorrhea or epistaxis. Mucous membranes moist. CHEST: Clear to auscultation. No respiratory distress. No wheezes rales or rhonchi HEART: Regular rate and rhythm. No murmur heard. EXTREMITIES: Normal range of motion. No edema. SKIN: Warm, dry, no rash. NEURO: No focal deficits. Alert and oriented x3. Cranial nerves II through XII grossly intact PSYCH: Acutely anxious with normal affect Course Course Emergency Course: 2 to patient presented with anxiety and methamphetamine abuse he will follow with primary care for further evaluation he is normal mentation ABCs and vital signs intact and stable felt appropriate for outpatient reevaluation given strict indications for reasons to return Vital Signs Vital signs: Vital Signs Temperature 97.5 F L 07/14/21 14:53 Pulse Rate 113 H 07/14/21 14:53 Respiratory Rate 18 07/14/21 14:53 Blood Pressure 135/89 07/14/21 14:53 Pulse Oximetry 100 07/14/21 14:53 Temperature 97.5 F L 07/14/21 14:53 Pulse Rate 113 H 07/14/21 14:53 Respiratory Rate 18 07/14/21 14:53 Blood Pressure 135/89 07/14/21 14:53 Pulse Oximetry 100 07/14/21 14:53 Medical Decision Making MDM Narrative Medical decision making narrative: Patient hemodynamically stable acute anxiety history of methamphetamine abuse will be discharged home with outpatient follow-up given indications for return felt appropriate for outpatient reevaluation afebrile nontoxic-appearing nondistressed Vital Signs Vital Signs: Vital Signs Temperature 97.5 F L 07/14/21 14:53 Pulse Rate 113 H 07/14/21 14:53 Respiratory Rate 18 07/14/21 14:53 Blood Pressure 135/89 07/14/21 14:53 Pulse Oximetry 100 07/14/21 14:53 Temperature 97.5 F L 07/14/21 14:53 Pulse Rate 113 H 07/14/21 14:53 Respiratory Rate 18 07/14/21 14:53 Blood Pressure 135/89 07/14/21 14:53 Pulse Oximetry 100 07/14/21 14:53 Discharge Plan Discharge Clinical Impression: Acute anxiety Patient Disposition: Home, Self-Care Condition: Stable Instructions: Antibiotic Form, Anxiety (ED) Additional Instructions: Follow up with your primary care doctor in 5-7 days for re-evaluation. Go to ER for worsening pain, vision changes, nausea/vomiting, fever/chills, weakness, chest pain, shortness of breath, numbness/tingling, slurred speech, difficulty walking, change in m
[2021-07-14] MEDS: LORazepam (*CRX) 1 MG TABLET PO (15:43)
== END 2021-07-14 15:46 | disposition home or self-care (01) ==
PROVIDERS: Emergency Provider Emergency Medicine
DX: F41.9 Anxiety disorder, unspecified (principal)
CPT/HCPCS: 99283; A9270

== ENCOUNTER 2022-04-01 11:19 | Emergency (ER) | payer OTHER, SELFPAY ==
[2022-04-01 11:26] VITALS: BP 129/71; PULSE 110; RESP 18; TEMP 37; O2SAT 97
[2022-04-01] MEDS: hydrOXYzine HCL 25 MG TABLET PO (11:29)
--- NOTE | 2022-04-01 11:30 | PC.NURSE ---
ordered pt lunch at this time
--- NOTE | 2022-04-01 11:38 | ED.PSYCH ---
HPI - Psych General Chief Complaint: Psychiatric Symptoms Stated Complaint: needs mental health eval History of Present Illness HPI Narrative: 31-year-old male history of schizophrenia presents the emergency room for evaluation requesting to speak with crisis team and for possible inpatient admission. Patient states that he has not taken any of his psychiatric medications in over 1 month, citing multiple reasons. Patient states that he is recently homeless, does not have a job, and has been methamphetamine. Patient denies suicidal or homicidal ideation at this time. Related Data Home Medications Medication Instructions Recorded Confirmed citalopram 40 mg tablet 40 mg PO DAILY 03/16/21 06/03/21 trazodone 100 mg tablet 100 mg PO HS 03/16/21 06/03/21 quetiapine 50 mg tablet (Seroquel) 50 mg PO HS 06/03/21 06/03/21 quetiapine 50 mg tablet 50 mg PO TID 07/14/21 07/14/21 trazodone 100 mg tablet 100 mg PO DAILY 07/14/21 07/14/21 Allergies Allergy/AdvReac Type Severity Reaction Status Date / Time cephalexin Allergy Unknown Verified 09/01/21 14:23 Review of Systems Review of Systems: CONSTITUTIONAL: Denies fever, chills, or sweats. EYES: Denies visual changes, redness, or discharge. ENT: Denies rhinorrhea, congestion, sore throat, or otalgia. CARDIOVASCULAR: Denies chest pain, palpitations, or edema. RESPIRATORY: Denies cough or dyspnea. GASTROINTESTINAL: Denies abdominal pain, nausea, vomiting, or diarrhea. GENITOURINARY: Denies dysuria or hematuria. SKIN: Denies rash or itching. MUSCULOSKELETAL: Denies back pain, joint pain, or myalgia. NEUROLOGIC: Denies headache, numbness, dizziness, or weakness. PSYCHIATRIC: Reports anxiety. [facility] Past Medical History Medical History Schizophrenia, acute undifferentiated Family History Family History Other Schizophrenia, acute undifferentiated Social History Social History Social History: Amphetamine use Smoking packs per day: 1 Smoking cigarettes per day: 20.0 Years smoked: 14 Smoking pack-years: 14.00 Smoking status: Current some day smoker Tobacco type: cigarettes Alcohol intake: former Substance use type: IV drugs Last use: 05/28/21 Spiritual care concerns: No Exam Narrative: GENERAL: Well-appearing, well-nourished, no physical limitations, and in no acute distress. HEAD: Normocephalic, atraumatic. EYES: Conjunctivae normal, PERRLA and EOMI. CHEST: Clear to auscultation. No respiratory distress. No wheezes rales or rhonchi. No tenderness. HEART: Regular rate and rhythm. No murmur heard. Normal peripheral pulses. ABDOMEN: Soft, nontender, nondistended, normal active bowel sounds. : Normal external male/female exam. BACK: No CVA tenderness; No cervical/thoracic/lumbar tenderness, step-offs, bony abnormality; FROM EXTREMITIES: Normal range of motion. No edema. No clubbing or cyanosis SKIN: Left foot: Healing puncture wound to the plantar surface, redness noted streaking medially NEURO: No focal deficits. Alert and oriented x3. MAEW. CN's II-XI intact bilaterally, antalgic gait PSYCH: Cooperative. Normal mood and affect. Course Course Emergency Course: 1330: Has been medically cleared and await clearance from crisis. Vital Signs Vital signs: Vital Signs Temperature 37.0 C 04/01/22 11:26 Pulse Rate 110 H 04/01/22 11:26 Respiratory Rate 18 04/01/22 11:26 Blood Pressure 129/71 04/01/22 11:26 Pulse Oximetry 97 04/01/22 11:26 Oxygen Delivery Room Air 04/01/22 11:26 Temperature 37.0 C 04/01/22 11:26 Pulse Rate 110 H 04/01/22 11:26 Respiratory Rate 18 04/01/22 11:26 Blood Pressure 129/71 04/01/22 11:26 Pulse Oximetry 97 04/01/22 11:26 Oxygen Delivery Room Air 04/01/22 11:26 MDM - Psych Lab Data Result diagrams: 04/01/22 11:3
[2022-04-01 11:41] LABS: Basophils Absolute Auto 0.1 K/mm3 (0.0-0.1); Basophils Percent Auto 0.6 % (0.2-1.2); Eosinophils Absolute Auto 0.4 K/mm3 (0-0.3); Eosinophils Percent Auto 4.7 % (0-4.4); Hematocrit 41.2 % (42.0-52.0); Immature Granulocyte Absolute 0.02 K/mm3 (0.00-0.031); Immature Granulocyte Percent A 0.3 % (0-0.5); Lymphocytes Absolute Auto 2.72 K/mm3 (0.9-3.2); Lymphocytes Percent Auto 34.3 % (18.3-44.2); Mean Corpuscular Hemoglobin 28.3 pg (26-34); Mean Corpuscular Volume 83.2 fl (80-100); Mean Platelet Volume 9.1 fl (7.4-10.4); Monocytes Absolute Auto 1.2 K/mm3 (0.1-0.6); Monocytes Percent Auto 15.1 % (2.6-8.5); Neutrophils Absolute Auto 3.6 K/mm3 (1.3-6.7); Platelet Count Result 321 k/mm3 (150-375); Red Blood Count 4.95 M/mm3 (4.6-6.20); Red Cell Distribution Width 13.2 % (11.5-14.5); White Blood Count 7.9 K/mm3 (4.5-10.0)
[2022-04-01 12:01] LABS: Acetaminophen < 10 ug/mL (10-30); Ethanol < 10 mg/dL (<10); Salicylate < 1.0 mg/dL (2-20)
[2022-04-01 12:02] LABS: Alanine Aminotransferase 20 U/L (6-50); Albumin Level 4.6 g/dL (3.5-5.1); Alkaline Phosphatase 69 U/L (38-126); Anion Gap 16 mmol/L (8-16); Aspartate Amino Transferase 31 U/L (17-59); Bilirubin,Total 0.6 mg/dL (0.2-1.3); Blood Urea Nitrogen 31 mg/dL (9-20); Calcium 9.2 mg/dL (8.4-10.2); Carbon Dioxide 23 mmol/L (22-30); Chloride 102 mmol/L (98-107); Estimated CRCL calculation 68 ml/min; Estimated Glomerular Filt Rate > 60; Glucose 125 mg/dL (65-110); Potassium 3.8 mmol/L (3.4-5.0); Sodium 141 mmol/L (137-145)
[2022-04-01 13:08] LABS: SARS-CoV-2 RNA PCR Negative
[2022-04-01 13:09] LABS: Appearance Urine Clear (Clear); Bilirubin Urine 1+ (Negative); Blood Urine Negative (Negative); Color Urine Yellow (Yellow); Glucose Urine UA Negative (Negative); Ketones Urine 1+ mg/dL (Negative); Leukocyte Esterase Ur Negative LEU/UL (Negative); Nitrate Urine Negative (Negative); Protein Urine 1+ mg/dL (Negative); Specific Grav Ur >= 1.030 (1.001-1.035); pH Urine 5.5 (5.0-9.0)
[2022-04-01 13:16] LABS: Mucus Urine Few /lpf
[2022-04-01 13:24] LABS: Barbiturate Screen Urine Negative (Negative); Benzodiazepines Screen Urine Negative (Negative)
[2022-04-01 13:26] LABS: Add Urine Microscopic? YES
[2022-04-01 13:37] LABS: Cannabinoid Screen Urine Negative (Negative); Cocaine Screen Urine Negative (Negative); Methadone Screen Urine Negative (Negative); Opiate Screen Urine Negative (Negative); Phencyclidine Screen Urine Negative (Negative)
--- NOTE | 2022-04-01 13:47 | PC.NURSE ---
[facility] called to evaluate patient.
[2022-04-01 13:49] LABS: Amphetamine Screen Urine Positive (Negative)
--- NOTE | 2022-04-01 14:47 | PC.NURSE ---
second call placed to [facility]. they report that someone is enroute
--- NOTE | 2022-04-01 15:54 | PC.NURSE ---
[facility]risis is here to evaluate patient
--- NOTE | 2022-04-01 16:17 | PC.NURSE ---
[facility] finished with evaluation, seeking placement
--- NOTE | 2022-04-01 17:23 | PC.NURSE ---
requested paperwork faxed to [facility]
--- NOTE | 2022-04-01 17:49 | PC.NURSE ---
more paperwork faxed to [facility] at their request. requested paperwork faxed to [facility]
[2022-04-01 18:25] VITALS: BP 137/79; PULSE 88; RESP 18; O2SAT 99
--- NOTE | 2022-04-01 18:32 | PC.NURSE ---
report called to soraya Rodriguez at [facility]
--- NOTE | 2022-04-01 18:38 | PC.NURSE ---
BLS transfer to [place] [address] - [address] - [facility] 00:30 1825 - [facility] ETA 20p Trip #[id number]
== END 2022-04-01 19:23 ==
LOC: ANHED 11:59
PROVIDERS: Emergency Provider Nurse Practitioner Family
DX: F20.9 Schizophrenia, unspecified (principal); Z20.822 Contact with and (suspected) exposure to COVID-19; F17.210 Nicotine dependence, cigarettes, uncomplicated; Z59.00 Homelessness unspecified
CPT/HCPCS: 36415; 80053; 80307; 81001; 85025; 99285; A9270; C9803; U0003; U0005

== ENCOUNTER 2022-04-19 04:23 | Emergency (ER) | payer OTHER, SELFPAY ==
[2022-04-19 04:15] VITALS: BP 174/100; PULSE 88; RESP 17; TEMP 36.9; O2SAT 100
--- NOTE | 2022-04-19 04:40 | PC.NURSE ---
This RN, Day RN and Estelle RN along with Dr Haile entered room to place reddy in pt. Pt educated on procedure and verbalized understanding. States he has had one before due to a previous urethral injury. As Day VELAZQUEZ attempted to clean pt with Betadine swabs, pt became agitated, hyperventilating, and yelling dont touch me, dont do that . Pt began grabbing at penis, on knees on stretcher attempting to climb over rails. Pt unable to be redirected. New orders placed by JACKIE Haile.
--- NOTE | 2022-04-19 04:43 | ED.GENADULT ---
HPI - General Adult General Chief complaint: Abdominal Pain <Erick Haile MD - Last Filed: 04/19/22 21:24> Stated complaint: ABD PAIN/GROIN CRAMPING/SUBSTANCE ABUSE <Erick Haile MD - Last Filed: 04/19/22 21:24> Time Seen by Provider: 04/19/22 04:26 <Erick Haile MD - Last Filed: 04/19/22 21:24> History of Present Illness HPI narrative: Patient is a 31-year-old gentleman who presents the emergency department with chief complaint of suprapubic pain. Patient reports that he has history of methamphetamine use last used a few hours ago the patient states that he also has history of a urethral injury and has had problems with his urinary stream in the past. Patient states that today he has not been able to urinate several hours and reports that he has severe discomfort in his suprapubic region. <Erick Haile MD - Last Filed: 04/19/22 21:24> Related Data Home medications: Home Medications Medication Instructions Recorded Confirmed citalopram 40 mg tablet 40 mg PO DAILY 03/16/21 06/03/21 trazodone 100 mg tablet 100 mg PO HS 03/16/21 06/03/21 quetiapine 50 mg tablet (Seroquel) 50 mg PO HS 06/03/21 06/03/21 quetiapine 50 mg tablet 50 mg PO TID 07/14/21 07/14/21 trazodone 100 mg tablet 100 mg PO DAILY 07/14/21 07/14/21 <Erick Haile MD - Last Filed: 04/19/22 21:24> Allergies/adverse reactions: Allergies Allergy/AdvReac Type Severity Reaction Status Date / Time cephalexin Allergy Unknown Unknown Verified 04/19/22 05:00 <Erick Haile MD - Last Filed: 04/19/22 21:24> Review of Systems Review of Systems: A 10 system review of systems was completed on the patient and is negative except for what is stated in the HPI. Nursing and ancillary documentation was reviewed. <Erick Haile MD - Last Filed: 04/19/22 21:24> [facility] Past Medical History Medical History: Medical History Schizophrenia, acute undifferentiated <Erick Haile MD - Last Filed: 04/19/22 21:24> Family History Family History: Family History Other Schizophrenia, acute undifferentiated <Erick Haile MD - Last Filed: 04/19/22 21:24> Social History Social History: Social History Social History: Amphetamine use Smoking packs per day: 1 Smoking cigarettes per day: 20.0 Years smoked: 14 Smoking pack-years: 14.00 Smoking status: Current some day smoker Tobacco type: cigarettes Alcohol intake: former Substance use type: IV drugs Last use: 05/28/21 Spiritual care concerns: No <Erick Haile MD - Last Filed: 04/19/22 21:24> Exam Narrative: GENERAL: Patient is acutely agitated showing signs of sympathomimetic intoxication. HEAD: Normocephalic, atraumatic. EYES: PERRLA and EOMI. ENT: Nares clear, no rhinorrhea or epistaxis. Mucous membranes moist. NECK: Supple. CHEST: Clear to auscultation. No respiratory distress. HEART: Regular rate and rhythm. No murmur heard. Normal peripheral pulses. ABDOMEN: Soft, tenderness to palpation in the suprapubic region, nondistended, normal active bowel sounds. EXTREMITIES: Normal range of motion. No edema. SKIN: Warm, dry, no rash. NEURO: No focal deficits. Alert and oriented x3. PSYCH: Normal mood and affect. <Erick Haile MD - Last Filed: 04/19/22 21:24> Course Course Emergency Course: Bladder scanner showed greater than 400 mL of urine in the bladder. When attempting to place a Zavala catheter the patient proceeded to become acutely agitated and said if he pulls on his penis he will be able to urinate the patient was standing on the stretcher and was acutely agitated due to medical reasons the patient was given a dose of Haldol B
[2022-04-19] MEDS: diphenhydrAMINE HCl INJ 50 MG/ML VIAL IM (04:47)
[2022-04-19] MEDS: HALOPERIDOL LACTATE 5 MG/ML VIAL IM (04:47)
[2022-04-19] MEDS: LORazepam INJ (*CRX) 2 MG/ML VIAL IM (04:47)
[2022-04-19 05:51] VITALS: BP 115/68; PULSE 76; RESP 14; O2SAT 98
[2022-04-19 06:10] LABS: Add Urine Microscopic? YES; Appearance Urine Cloudy (Clear); Bacteria Urine Trace /hpf; Bilirubin Urine Negative (Negative); Blood Urine 2+ (Negative); Color Urine Yellow (Yellow); Glucose Urine UA Negative (Negative); Ketones Urine Trace mg/dL (Negative); Leukocyte Esterase Ur Negative LEU/UL (Negative); Mucus Urine Rare /lpf; Nitrate Urine Negative (Negative); Protein Urine Negative (Negative); RBC Urine 51-75 /hpf (0-2); Specific Grav Ur 1.017 (1.001-1.035); WBC Urine 0-3 /hpf
--- NOTE | 2022-04-19 06:11 | PC.NURSE ---
Pt sleeping on stretcher
[2022-04-19 07:20] VITALS: BP 118/63; PULSE 73; RESP 18; O2SAT 100
[2022-04-19] MEDS: SULFAMETHOXAZOLE/TRIMETHOPRIM 800/160 MG DS TABLET 1 TAB PO (11:12)
--- NOTE | 2022-04-19 12:01 | PC.NURSE ---
Patient states he does not want to be discharged with the reddy catheter. MD made aware and verbal order to remove reddy was given to this RN. Reddy removed and there was approx 1450mL of urine in drainage bad. Patient awake and alert at this time
--- NOTE | 2022-04-19 12:36 | PC.NURSE ---
This RN went to discharge patient and he states I need to go to [facility]. I need help. Im suicidal. MD made aware. Patient placed in green scrubs and belongings locked up. Patient now in room 15 with sitter at bedside
--- NOTE | 2022-04-19 13:52 | PC.NURSE ---
this rn spoke with crisis, we are unable to evaluate until pt has all his labs and covid swab back.
[2022-04-19 14:14] LABS: Basophils Percent Auto 0.4 % (0.2-1.2); Eosinophils Absolute Auto 0.3 K/mm3 (0-0.3); Eosinophils Percent Auto 4.4 % (0-4.4); Hematocrit 38.6 % (42.0-52.0); Hemoglobin 13.3 g/dL (14.0-18.0); Immature Granulocyte Absolute 0.02 K/mm3 (0.00-0.031); Immature Granulocyte Percent A 0.3 % (0-0.5); Mean Corpuscular HGB Conc 34.5 g/dl (32-36); Mean Corpuscular Hemoglobin 28.2 pg (26-34); Mean Platelet Volume 9.1 fl (7.4-10.4); Monocytes Absolute Auto 0.9 K/mm3 (0.1-0.6); Monocytes Percent Auto 12.4 % (2.6-8.5); Neutrophils Absolute Auto 3.8 K/mm3 (1.3-6.7); Neutrophils Percent Auto 51.5 % (45.5-73.1); Platelet Count Result 262 k/mm3 (150-375); Red Blood Count 4.71 M/mm3 (4.6-6.20); Red Cell Distribution Width 13.3 % (11.5-14.5); White Blood Count 7.4 K/mm3 (4.5-10.0)
[2022-04-19 14:27] LABS: Acetaminophen < 10 ug/mL (10-30); Ethanol < 10 mg/dL (<10); Salicylate < 1.0 mg/dL (2-20)
[2022-04-19 14:52] LABS: SARS-CoV-2 RNA PCR Negative
[2022-04-19 14:59] LABS: Alanine Aminotransferase 20 U/L (6-50); Albumin Level 4.1 g/dL (3.5-5.1); Alkaline Phosphatase 69 U/L (38-126); Aspartate Amino Transferase 38 U/L (17-59); Bilirubin,Total 0.8 mg/dL (0.2-1.3); Blood Urea Nitrogen 13 mg/dL (9-20); Calcium 8.7 mg/dL (8.4-10.2); Carbon Dioxide 25 mmol/L (22-30); Chloride 103 mmol/L (98-107); Estimated CRCL calculation 88 ml/min; Estimated Glomerular Filt Rate > 60; Glucose 82 mg/dL (65-110); Magnesium 2.2 mg/dL (1.6-2.3)
[2022-04-19 15:18] LABS: Anion Gap 9 mmol/L (8-16); Potassium 3.8 mmol/L (3.4-5.0); Sodium 137 mmol/L (137-145)
--- NOTE | 2022-04-19 17:21 | PC.NURSE ---
Need UA for crisis to evaluate. Pt reports unable to void at this time and states when I do this much meth it's hard for me to pee. Bladder scanned 150mls noted
[2022-04-19 18:26] LABS: Barbiturate Screen Urine Negative (Negative); Benzodiazepines Screen Urine Negative (Negative); Cannabinoid Screen Urine Negative (Negative); Cocaine Screen Urine Negative (Negative); Methadone Screen Urine Negative (Negative); Opiate Screen Urine Negative (Negative); Phencyclidine Screen Urine Negative (Negative)
[2022-04-19 19:00] LABS: Amphetamine Screen Urine Positive (Negative)
[2022-04-19 21:42] VITALS: BP 114/67; PULSE 88; RESP 18; O2SAT 98
== END 2022-04-19 21:48 | disposition home or self-care (01) ==
PROVIDERS: Emergency Medicine; Emergency Provider Emergency Medicine
DX: R33.9 Retention of urine, unspecified (principal); F19.10 Other psychoactive substance abuse, uncomplicated; F20.3 Undifferentiated schizophrenia; R45.851 Suicidal ideations; Z20.822 Contact with and (suspected) exposure to COVID-19; F17.210 Nicotine dependence, cigarettes, uncomplicated
CPT/HCPCS: 36415; 80053; 80307; 81001; 83735; 84443; 85025; 96372; 99284; A9270; J1200; J1630; J2060; U0003; U0005

== ENCOUNTER 2023-01-15 17:21 | Inpatient (IN) | payer OTHER, SELFPAY ==
--- NOTE | ~2023-01-15 | CT_ITS ---
Noncontrast CT scan of the left forearm CLINICAL HISTORY: Cellulitis, abscess TECHNIQUE: Axial noncontrast imaging of the left forearm was performed. Sagittal and coronal reformat foreign images were constructed. Dose reduction technique was used on this scan by utilizing automated ex posure control and iterative reconstruction technique. The dose-length product (DLP) was 567.70 mGy-c m. Findings: Osseous structures appear intact. No fracture or periosteal reaction. Joint spaces are pres erved. Osseous alignment appears anatomic. No joint effusion identified. Visualized musculature appears unremarkable. There is extensive subcutaneous soft tissue edema of the forearm, especially over the lateral aspect. No definite abscess. IMPRESSION: Extensive subcutaneous soft tissue edema, consistent with history cellulitis. No abscess identified. No osseous or articular abnormality evident. Reviewed, dictated and finalized at location . IMPRESSION: Extensive subcutaneous soft tissue edema, consistent with history cellulitis. N o abscess identified. No osseous or articular abnormality evident.
--- NOTE | ~2023-01-15 | XR_ITS ---
XR forearm LT 2V DATE: 01/15/2023 19:43 INDICATION: Left arm deformity TECHNIQUE: 2 views COMPARISON: None FINDINGS: There appears to be some soft tissue swelling along the mid to distal posteromedial aspect of the forearm. No fracture or dislocation of the radius or ulna. No periosteal reaction or bone destruction. Normal alignment at the elbow and wrist joints. IMPRESSION: Mid to distal posterolateral soft tissue swelling; no bony abnormality is detected Reviewed, dictated and finalized at location A. IMPRESSION: Mid to distal posterolateral soft tissue swelling; no bony abnormal ity is detected
[2023-01-15 17:29] VITALS: BP 119/79; PULSE 108; RESP 18; TEMP 36.8; O2SAT 100
--- NOTE | 2023-01-15 19:37 | ED.SKABFB ---
HPI - Skin/Abscess/Foreign Bdy General Chief complaint: Skin/Abscess/Foreign Body Stated complaint: scabies on legs/left arm infection Time Seen by Provider: 01/15/23 19:02 History of Present Illness HPI narrative: This is a 32-year-old male, who admits to past history of methamphetamine abuse, who presents to the emergency department complaining of scabies of the leg and pain of the left forearm. The patient states he has been living in the [facility] and has is multiple lesions and rashes across the bilateral legs, consistent with scabies (which he has had before). He also complains of 7/10 left forearm pain and swelling for the past 2 days. He states he attempted to inject methamphetamine and a vein and missed. Swelling is tender to palpation but not to movement of the forearm and fingers. He denies loss of sensation or strength in the hand. Related Data Home Medications Medication Instructions Recorded Confirmed trazodone 100 mg tablet 100 mg PO HS 03/16/21 01/16/23 quetiapine 50 mg tablet (Seroquel) 50 mg PO HS 06/03/21 01/16/23 Allergies Allergy/AdvReac Type Severity Reaction Status Date / Time cephalexin Allergy Unknown Unknown Verified 01/15/23 17:21 Review of Systems Review of Systems: CONSTITUTIONAL: Denies fever, chills, or sweats. CARDIOVASCULAR: Denies chest pain, palpitations, or edema. RESPIRATORY: Denies cough or dyspnea. GASTROINTESTINAL: Denies abdominal pain, nausea, vomiting, or diarrhea. GENITOURINARY: Denies dysuria or hematuria. SKIN: Itching rash on the bilateral forelegs MUSCULOSKELETAL: Pain and swelling of the left forearm denies back pain, joint pain, or myalgia. NEUROLOGIC: Denies headache, numbness, dizziness, or weakness. PSYCHIATRIC: Denies anxiety or depression. [facility] Past Medical History Medical History Schizophrenia, acute undifferentiated Family History Family History Other Schizophrenia, acute undifferentiated Social History Social History Social History: Amphetamine use Smoking packs per day: 1.5 Smoking cigarettes per day: 30.0 Years smoked: 14 Smoking pack-years: 21.00 Smoking status: Current some day smoker Tobacco type: cigarettes and e-cigarettes/vaping Second hand tobacco smoke exposure: Yes Alcohol intake: former Substance use: current Substance use type: marijuana and methamphetamine Last use: 01/13/23 Lack of Transportation: YES Lack of Food: Sometimes True Current Housing: I Do Not Have Housing Concerned About Future Housing: YES Difficulty Paying Gas/Electric Bills: YES Difficulty Paying for Meds: YES Currently Unemployed: No Education: High School Diploma/GED Difficulty w/ Childcare or Family Care: No Spiritual care concerns: No Exam Narrative: GENERAL: Well-developed, well-nourished, and in no acute distress. HEAD: Normocephalic, atraumatic. EYES: PERRLA and EOMI. ENT: Nares clear, no rhinorrhea or epistaxis. Mucous membranes moist. Oropharynx without tonsillar hypertrophy exudate or other lesions. CHEST: Clear to auscultation. No respiratory distress. No wheezes rales or rhonchi HEART: Regular rate and rhythm. No murmur heard. Normal peripheral pulses. ABDOMEN: Soft, nontender, nondistended, normal active bowel sounds. EXTREMITIES: Normal range of motion. No pain with passive range of motion of the fingers of the left forearm. No edema. SKIN: There is a tender, slightly erythematous area of induration measuring approximately 10 x 8 cm on the dorsal aspect of the left forearm. On the bilateral forelegs, there are scattered areas of papular, erythematous rash with creeping lines and excoriations, consistent with scabies. Warm, dry, no rash. NEURO: No focal deficits. Alert and oriented x3. PSYCH: Normal mood and affect. Course C
[2023-01-15] MEDS: ACETAMINOPHEN/CODEINE (*CRX) 300/30 MG TABLET 1 TAB PO (19:55)
[2023-01-15 20:13] LABS: Basophils Absolute Auto 0.1 K/mm3 (0.0-0.1); Basophils Percent Auto 0.4 % (0.2-1.2); Eosinophils Absolute Auto 0.7 K/mm3 (0-0.3); Eosinophils Percent Auto 4.8 % (0-4.4); Hematocrit 39.7 % (42.0-52.0); Hemoglobin 13.7 g/dL (14.0-18.0); Immature Granulocyte Absolute 0.04 K/mm3 (0.00-0.031); Immature Granulocyte Percent A 0.3 % (0-0.5); Lymphocytes Absolute Auto 3.13 K/mm3 (0.9-3.2); Lymphocytes Percent Auto 22.3 % (18.3-44.2); Mean Corpuscular HGB Conc 34.5 g/dl (32-36); Mean Platelet Volume 9.3 fl (7.4-10.4); Monocytes Absolute Auto 1.8 K/mm3 (0.1-0.6); Monocytes Percent Auto 12.4 % (2.6-8.5); Neutrophils Absolute Auto 8.4 K/mm3 (1.3-6.7); Neutrophils Percent Auto 59.8 % (45.5-73.1); Platelet Count Result 244 k/mm3 (150-375); Red Cell Distribution Width 14.8 % (11.5-14.5); White Blood Count 14.1 K/mm3 (4.5-10.0)
[2023-01-15 20:39] LABS: Alanine Aminotransferase 22 U/L (6-50); Albumin Level 4.7 g/dL (3.5-5.1); Alkaline Phosphatase 60 U/L (38-126); Anion Gap 11 mmol/L (8-16); Aspartate Amino Transferase 41 U/L (17-59); Bilirubin,Total 1.1 mg/dL (0.2-1.3); Blood Urea Nitrogen 21 mg/dL (9-20); Calcium 9.2 mg/dL (8.4-10.2); Carbon Dioxide 24 mmol/L (22-30); Chloride 102 mmol/L (98-107); Creatine Kinase 571 U/L (55-170); Estimated CRCL calculation 73 ml/min; Estimated Glomerular Filt Rate > 60; Glucose 89 mg/dL (65-110); Potassium 3.2 mmol/L (3.4-5.0); Sodium 137 mmol/L (137-145)
[2023-01-15] MEDS: POTASSIUM CHLORIDE 20 MEQ PACKET (FOR LIQUID) 40 MEQ PO (22:13)
[2023-01-15 23:51] VITALS: BP 123/75; PULSE 92; RESP 16; O2SAT 99
--- NOTE | 2023-01-15 23:57 | PM.IMHP ---
H&P: HPI History of Present Illness Date/Time: 01/15/23 23:57 Chief Complaint: Left forearm swelling and pain Narrative: 32-year-old male with a past medical history of IV methamphetamine abuse and undifferentiated schizophrenia who presented to the ER with itching that he thinks is due to scabies. While he was in the ER he happened to mention that he had shot up into his left forearm on the approximately the . Since that time he has had erythema tenderness and swelling of his dorsal forearm. He reports that the erythema and swelling have not worsened. He reports that when it initially happened it stung quite badly and so he rubbed quite hard to distribute the drugs throughout the tissues. He states that the pain is a 7 to 8/10 in intensity. The pain is aching and worse with palpation. He can move his wrist and forearm without difficulty. His sensation is intact. He thinks that he has scabies because of friend's is in the medical field in told him that it looked like scabies. He actually has not had scabies before. But he has had rashes before. He is currently living in the [facility]. The patient does state that he does not share needles. However he does reuse needles on a somewhat frequent basis. He reports that he has had multiple relapses. He states that he is in his current ?phase of remission? of his drug use for the last 2 or 3 months. He states that he is injected and her smoked methamphetamines since his early 20s. He is went between 7 months in up to 1 year and 1 point without using drugs. He is currently using drugs but has been successfully working for the last 3 months. He states that he lives in the [facility] so that he can actually be close enough to get to his job. Review of Systems Review of Systems: 12 systems were reviewed with pertinent positives and negatives per HPI. Except as documented in the HPI, all other systems were reviewed and are negative. [facility] Past Medical History Medical History (Updated 01/16/23 @ 04:50 by Xiao Zamora DO) Herpes genitalia HPV in male Schizophrenia, acute undifferentiated Surgical History Surgical History (Updated 01/16/23 @ 04:50 by Xiao Zamora DO) History of appendectomy Family History Family History Other Schizophrenia, acute undifferentiated Social History Social History (Updated 01/16/23 @ 05:03 by Xiao Zamora DO) Social History: The patient reports that he has been homeless for about 3 months. He uses methamphetamines on a somewhat frequent basis. He smokes up to 1.5 packs of cigarettes per day since he was about 11 years old. He is no longer smoking cigarettes but is still vaping nicotine. He also uses marijuana on occasion. He used to drink quite heavily but quit heavy alcohol use in his mid 20s. He still drinks alcohol on occasion. He denies using any other drugs except for methamphetamines however his urine drug screen is also positive for opiates. Smoking packs per day: 1.5 Smoking cigarettes per day: 30.0 Years smoked: 18 Smoking pack-years: 27.00 Smoking status: Current some day smoker Tobacco type: cigarettes and e-cigarettes/vaping Second hand tobacco smoke exposure: Yes Alcohol intake: current Alcohol use details: He used to drink alcohol to excess until about 24 years old. Now he drinks alcohol on occasion in in moderation. Substance use: current Substance use type: marijuana and methamphetamine Last use: 01/13/23 Lack of Transportation: YES Lack of Food: Sometimes True Current Housing: I Do Not Have Housing Concerned About Future Housing: YES Difficulty Paying Gas/Electric Bills: YES Difficulty Paying for Meds: YES Currently Unemployed: No Education: High School Diploma/GED Difficulty w/ Childcare or Family Care: No Spiritual care concerns: No Meds Home Medications and Allergies Home Medications Med
[2023-01-16] VITALS: BP 100/67; PULSE 87; RESP 20; TEMP 37; O2SAT 96; BMI 23.3
[2023-01-16] MEDS: MORPHINE SULFATE (*CRX) 4 MG/ML INJ IV PUSH (00:05)
--- NOTE | 2023-01-16 00:40 | ADMGEN ---
This patient, Rickey Maurice, was admitted to Medical Room 343-01. Patient/family oriented to hospital policies and general routines including ID bracelet, bed and alarms, visiting hours, pain management, procedures, bathroom and other care routines, personal items, smoking policy, room service/diet, and visiting hours. Information on how to activate the Rapid Response Team has been discussed. Patient/Family are encouraged to report perceived risks to care and to ask questions if they do not understand what they are told or what they should do.
[2023-01-16 00:51] LABS: Barbiturate Screen Urine Negative (Negative); Benzodiazepines Screen Urine Negative (Negative)
[2023-01-16 00:52] LABS: Cannabinoid Screen Urine Positive (Negative); Cocaine Screen Urine Negative (Negative); Methadone Screen Urine Negative (Negative); Opiate Screen Urine Positive (Negative); Phencyclidine Screen Urine Negative (Negative)
[2023-01-16 01:24] LABS: Amphetamine Screen Urine Positive (Negative)
[2023-01-16 01:44] VITALS: BP 100/67; PULSE 87; RESP 20; TEMP 37; O2SAT 96; BMI 23.3; BMI 25.7
[2023-01-16 05:47] VITALS: BP 94/60; PULSE 81; RESP 20; TEMP 36.6; O2SAT 100
[2023-01-16] MEDS: SODIUM CHLORIDE 0.9% IV 1,000 ML 150 ML IV CONT (06:00)
[2023-01-16] MEDS: PERMETHRIN 5% CREAM 60 GM TUBE 1 APPLIC TOPICAL (06:02)
[2023-01-16 08:03] LABS: Basophils Percent Auto 0.3 % (0.2-1.2); Eosinophils Absolute Auto 1.4 K/mm3 (0-0.3); Eosinophils Percent Auto 13.7 % (0-4.4); Hematocrit 37.5 % (42.0-52.0); Hemoglobin 13.1 g/dL (14.0-18.0); Immature Granulocyte Absolute 0.02 K/mm3 (0.00-0.031); Immature Granulocyte Percent A 0.2 % (0-0.5); Lymphocytes Absolute Auto 2.03 K/mm3 (0.9-3.2); Lymphocytes Percent Auto 20.3 % (18.3-44.2); Mean Corpuscular HGB Conc 34.9 g/dl (32-36); Mean Corpuscular Hemoglobin 28.3 pg (26-34); Mean Platelet Volume 9.3 fl (7.4-10.4); Monocytes Absolute Auto 1.2 K/mm3 (0.1-0.6); Monocytes Percent Auto 12.1 % (2.6-8.5); Neutrophils Absolute Auto 5.3 K/mm3 (1.3-6.7); Neutrophils Percent Auto 53.4 % (45.5-73.1); Platelet Count Result 210 k/mm3 (150-375); Red Blood Count 4.63 M/mm3 (4.6-6.20); Red Cell Distribution Width 14.9 % (11.5-14.5)
[2023-01-16 08:11] LABS: Anion Gap 6 mmol/L (8-16); Blood Urea Nitrogen 21 mg/dL (9-20); Calcium 8.4 mg/dL (8.4-10.2); Carbon Dioxide 26 mmol/L (22-30); Chloride 102 mmol/L (98-107); Creatine Kinase 404 U/L (55-170); Estimated CRCL calculation 87 ml/min; Estimated Glomerular Filt Rate > 60; Glucose 97 mg/dL (65-110); Potassium 3.2 mmol/L (3.4-5.0); Sodium 134 mmol/L (137-145)
[2023-01-16 08:52] LABS: HIV 1/2 Ab P24 Ag Result Negative (Negative)
[2023-01-16 09:10] LABS: Hepatitis B Surface Antigen Negative (Negative)
[2023-01-16 09:16] LABS: HAV RESULT Negative (Negative); Hepatitis B Core IgM Result Negative (Negative)
[2023-01-16 09:28] LABS: Hepatitis C Virus Antibody Negative (Negative)
--- NOTE | 2023-01-16 10:54 | PC.NURSE ---
Spoke with Gracia with Infection [facility] in regards to staff concerns that the patient may or may not have scabies. Gracia agreed to come assess the patient and evaluate if further isolation is necessary.
--- NOTE | 2023-01-16 13:27 | PM.IMPN ---
Progress Note: A&P Assessment and Plan (1) Cellulitis: Qualifiers: Laterality: left Site of cellulitis: extremity Site of cellulitis of extremity: upper extremity Qualified Code(s): L03.114 - Cellulitis of left upper limb Code(s): L03.90 - Cellulitis, unspecified Status: Acute Assessment and Plan: The patient has an area of on his left dorsal forearm that could be mild cellulitis versus abscess. The patient does have a elevated CK which could indicate myositis however his CK could also be elevated given his recent methamphetamine use in associated psychomotor agitation. He was started on Vancomycin. He is allergic to cephalexin. BCx are pending. Also started on IV fluids and TCK is trending down. Will decreased fluid rate. He does not have compartment syndrome. Concern for abscess but others but felt less likely. Given this however, will check CT. (2) IVDU (intravenous drug user): Code(s): F19.90 - Other psychoactive substance use, unspecified, uncomplicated Status: Acute Assessment and Plan: The patient is anxious due to his schizophrenia and drug use. The patient does have a history of IV drug use. HIV and hepatitis panel negative. PRP pending. The patient does state that he has been vaccinated against hepatitis-B. He does have a history of genital herpes and he was previously on Valtrex. Stated that he recently had a outbreak of herpes and did not have any medications. That outbreak has resolved. Will provide Ativan as needed for w/d symptoms. (3) Elevated CK: Code(s): R74.8 - Abnormal levels of other serum enzymes Status: Acute Assessment and Plan: As above. Folow levels (4) Rash: Code(s): R21 - Rash and other nonspecific skin eruption Status: Acute Assessment and Plan: Patient does have splotchy rash on his anterior shins which he states has been there for 2 or 3 months. This rash comes and goes and is not unusual for him. However he is also has multiple erythematous some raised some not on lesions on his ankles enlarged extremities and a few on his mostly upper arms. Patient's rash appears to be more consistent with bug bites. Permethrin started but doubt scabies. ID RN consulted. (5) Schizophrenia, acute undifferentiated: Code(s): F20.3 - Undifferentiated schizophrenia Status: Acute Assessment and Plan: Patient with schizophrenia. He is remaining calm. Resume home meds. (6) Testicular mass: Code(s): N50.89 - Other specified disorders of the male genital organs Status: Acute Assessment and Plan: Noted in the past. Will repeat US to assess size. (7) Tobacco abuse: Code(s): Z72.0 - Tobacco use Status: Acute Assessment and Plan: The patient states that he would like to decrease and eventually stop smoking. Nicotine gum was provided per his request. Subjective Date/time seen: 01/16/23 13:27 Interval history: 32yo male with hx of IVDU and is homeless here for left arm pain and swelling. He is awake but hx limited. He is still having pain in the left fore arm. He admits to injecting illegal drugs in his arms but never in his legs or feet. He does state the skin lesions are itchy. No numbness or tingling in the fingers. Exam Narrative: AF 97.9 94/60 81 20 100% ra Gen - NARD lying almost flat in bed Chest - CTA bilaterally, nml RR CV - RRR S1/S2 Abd - Soft, NT/ND, Positive BS Ext - No pedal edema. Left forearm soft with central are of induration and pink erythema. neurovasc intact in the left hand Neuro - awake and alert. mild akathesia Psych - Nml mood but odd affect Skin - No tunnels. no involvement in intriginous areas. Small dried eschars bilateral LE. Also small pink patches bilateral LE. Objective Data Vital Signs Vital Signs: Vital Signs - 24 hr 01/15/23 17:29 01/15/23 23:51 01/16/23 00:50 Temperature 98.2 F
[2023-01-16 13:51] LABS: Rapid Plasma Reagin Non-Reactive (NonReactive)
[2023-01-16 14:00] VITALS: BP 117/75; PULSE 76; RESP 18; TEMP 36.8; O2SAT 100
[2023-01-16] MEDS: POTASSIUM CHLORIDE 20 MEQ PACKET (FOR LIQUID) 40 MEQ PO (14:00)
[2023-01-16] MEDS: KETOROLAC 30 MG/ML VIAL (*BKC) IV PUSH (14:02)
--- NOTE | 2023-01-16 17:33 | PC.NURSE ---
Patient off of unit to CT scan
--- NOTE | 2023-01-16 18:01 | PC.NURSE ---
Patient returned to unit from CT scan
--- NOTE | 2023-01-16 18:04 | PC.NURSE ---
Patient has an ordered in for an ultrasound of his scrotum. Patient is refusing to get the ultrasound stating That was 3 years ago and it went away . [employer] explained that it could still be there and that we want to cover bases and ensure it is not. Patient stated I think I would know if it was there. You can cancel the test I want to get some sleep . [employer] [employer] updated Ermias with transport that patient is refusing. Ermias said he would update Ultrasound.
[2023-01-16 20:00] VITALS: PULSE 78; RESP 20; O2SAT 100
[2023-01-16 20:03] VITALS: BP 116/69; PULSE 78; RESP 20; TEMP 36.4; O2SAT 100
[2023-01-16] MEDS: SODIUM CHLORIDE 0.9% IV 1,000 ML 125 ML IV CONT (20:46)
[2023-01-16] MEDS: QUEtiapine FUMARATE 25 MG TABLET 50 MG PO (20:47)
[2023-01-16] MEDS: traZODone HCL 50 MG TABLET 100 MG PO (20:47)
[2023-01-17 04:23] VITALS: BP 105/54; PULSE 77; RESP 16; TEMP 36.4; O2SAT 99
[2023-01-17 08:20] LABS: Basophils Percent Auto 0.5 % (0.2-1.2); Eosinophils Absolute Auto 1.4 K/mm3 (0-0.3); Eosinophils Percent Auto 16.5 % (0-4.4); Hematocrit 34.7 % (42.0-52.0); Hemoglobin 11.8 g/dL (14.0-18.0); Immature Granulocyte Absolute 0.02 K/mm3 (0.00-0.031); Immature Granulocyte Percent A 0.2 % (0-0.5); Lymphocytes Absolute Auto 2.42 K/mm3 (0.9-3.2); Lymphocytes Percent Auto 29.2 % (18.3-44.2); Mean Corpuscular Hemoglobin 28.2 pg (26-34); Mean Platelet Volume 9.1 fl (7.4-10.4); Monocytes Absolute Auto 1.1 K/mm3 (0.1-0.6); Monocytes Percent Auto 12.8 % (2.6-8.5); Neutrophils Absolute Auto 3.4 K/mm3 (1.3-6.7); Neutrophils Percent Auto 40.8 % (45.5-73.1); Platelet Count Result 192 k/mm3 (150-375); Red Blood Count 4.18 M/mm3 (4.6-6.20); Red Cell Distribution Width 15.3 % (11.5-14.5); White Blood Count 8.3 K/mm3 (4.5-10.0)
[2023-01-17 08:29] LABS: Anion Gap 5 mmol/L (8-16); Blood Urea Nitrogen 17 mg/dL (9-20); Calcium 7.9 mg/dL (8.4-10.2); Carbon Dioxide 25 mmol/L (22-30); Chloride 107 mmol/L (98-107); Creatine Kinase 140 U/L (55-170); Estimated CRCL calculation 96 ml/min; Estimated Glomerular Filt Rate > 60; Glucose 113 mg/dL (65-110); Magnesium 1.7 mg/dL (1.6-2.3); Phosphorus 3.7 mg/dL (2.5-4.5); Potassium 3.7 mmol/L (3.4-5.0); Sodium 137 mmol/L (137-145)
[2023-01-17 09:47] LABS: Thyroid Stimulating Hormone Reflex 0.892 uIU/mL (0.465-4.68)
[2023-01-17] MEDS: SODIUM CHLORIDE 0.9% IV 1,000 ML 125 ML IV CONT (11:36)
[2023-01-17 13:57] LABS: Vancomycin Trough < 5.0 ug/mL (10.0-20.0)
[2023-01-17 14:00] VITALS: BP 108/53; PULSE 75; RESP 16; TEMP 36.9; O2SAT 100
--- NOTE | 2023-01-17 15:12 | PM.IMPN ---
Progress Note: A&P Assessment and Plan (1) Cellulitis: Qualifiers: Laterality: left Site of cellulitis: extremity Site of cellulitis of extremity: upper extremity Qualified Code(s): L03.114 - Cellulitis of left upper limb Code(s): L03.90 - Cellulitis, unspecified Status: Acute Assessment and Plan: The patient has an area of on his left dorsal forearm that could be mild cellulitis versus chemical (drug) reaction. CT forearm shows extensive SQ soft tissue edema but no abscess. CK mildly elevated which could indicate myositis and/or psychomotor agitation associated with recent methamphetamine use. He was started on Vancomycin with good response. He is allergic to cephalexin. BCx are NGTD. WBC normal now. He does not have compartment syndrome. Given his social situation, will keep to ensure 3 days of IV abx incase he is unable/unwilling to continue oral abx after discharge (2) IVDU (intravenous drug user): Code(s): F19.90 - Other psychoactive substance use, unspecified, uncomplicated Status: Acute Assessment and Plan: The patient was anxious due to his schizophrenia and drug use. The patient does have a history of IV drug use. HIV and hepatitis panel negative. PRP non-reactive. The patient does state that he has been vaccinated against hepatitis B. He does have a history of genital herpes and he was previously on Valtrex. Stated that he had a recent outbreak of herpes that resolved. Ativan available as needed for w/d symptoms. Tristen is discussing drug rehab and other services available to the patient. (3) Elevated CK: Code(s): R74.8 - Abnormal levels of other serum enzymes Status: Acute Assessment and Plan: Total CK levels have normalized. Will stop IV fluids. (4) Rash: Code(s): R21 - Rash and other nonspecific skin eruption Status: Acute Assessment and Plan: Patient does have splotchy rash on his anterior shins which he states has been there for 2 or 3 months. This rash comes and goes and is not unusual for him. However he is also has multiple erythematous some raised some not on lesions on his ankles and extremities and a few on his upper arms. Patient's rash appears to be more consistent with bug bites. Permethrin started but doubt scabies and this was stopped. Try steroid cream. (5) Schizophrenia, acute undifferentiated: Code(s): F20.3 - Undifferentiated schizophrenia Status: Acute Assessment and Plan: Patient with schizophrenia. Stable. Home meds resumed. (6) Testicular mass: Code(s): N50.89 - Other specified disorders of the male genital organs Status: Acute Assessment and Plan: Noted in the past. Repeat US ordered but patient felt that he would know if he had a testicular mass and refused the US. (7) Tobacco abuse: Code(s): Z72.0 - Tobacco use Status: Acute Assessment and Plan: The patient states that he would like to decrease and eventually stop smoking. Nicotine gum was provided per his request. Subjective Date/time seen: 01/17/23 15:12 Interval history: 32yo male with hx of IVDU and is homeless here for left arm pain and swelling. He feels his left forearm is less edematous and painful. No numbness, tingling or weakness in the left hand. He is up walking to the bathroom. Exam Narrative: AF 97.6 105/54 77 16 99% ra Gen - NARD Chest - CTA bilaterally, nml RR CV - RRR S1/S2 Abd - Soft, NT/ND, Positive BS Ext - No pedal edema. Left forearm softer with mild central area of induration. neurovasc intact in the left hand Neuro - awake and alert. calm and cooperative Psych - Nml mood and affect Skin - splotchy pink patches bilateral LE. Objective Data Vital Signs Vital Signs: Vital Signs - 24 hr 01/16/23 20:03 01/16/23 20:00 01/17/23 04:23 Temperature 97.6 F 97.6 F Pulse Rate 78 78 77 Respiratory Rate 20 20 16 Blood Pres
[2023-01-17 19:51] VITALS: BP 110/71; PULSE 70; RESP 18; TEMP 36.9; O2SAT 100
[2023-01-17 20:00] VITALS: PULSE 70; RESP 18; O2SAT 100
[2023-01-17] MEDS: QUEtiapine FUMARATE 25 MG TABLET 50 MG PO (20:49)
[2023-01-17] MEDS: HYDROCORTISONE 1% 30 GM CREAM 1 APPLIC TOPICAL (20:49)
[2023-01-18 04:34] VITALS: BP 106/60; PULSE 80; RESP 18; TEMP 36.6; O2SAT 100
[2023-01-18] MEDS: HYDROCORTISONE 1% 30 GM CREAM 1 APPLIC TOPICAL (08:35)
[2023-01-18 08:36] VITALS: O2SAT 99
--- NOTE | 2023-01-18 09:57 | PM.DS ---
DS: Admitting Diagnosis Discharge Date 01/18/23 Admitting Diagnosis right arm swelling DS: Discharge Diagnosis Discharge Diagnosis (1) Cellulitis: Qualifiers: Laterality: left Site of cellulitis: extremity Site of cellulitis of extremity: upper extremity Qualified Code(s): L03.114 - Cellulitis of left upper limb Code(s): L03.90 - Cellulitis, unspecified Status: Acute Assessment and Plan: The patient has an area of on his left dorsal forearm that could be mild cellulitis versus chemical (drug) reaction. CT forearm shows extensive SQ soft tissue edema but no abscess. CK mildly elevated which could indicate myositis and/or psychomotor agitation associated with recent methamphetamine use. He was started on Vancomycin with good response. He is allergic to cephalexin. BCx are NGTD. WBC normal now. He does not have compartment syndrome. Given his social situation, will keep to ensure 3 days of IV abx incase he is unable/unwilling to continue oral abx after discharge (2) IVDU (intravenous drug user): Code(s): F19.90 - Other psychoactive substance use, unspecified, uncomplicated Status: Acute Assessment and Plan: The patient was anxious due to his schizophrenia and drug use. The patient does have a history of IV drug use. HIV and hepatitis panel negative. PRP non-reactive. The patient does state that he has been vaccinated against hepatitis B. He does have a history of genital herpes and he was previously on Valtrex. Stated that he had a recent outbreak of herpes that resolved. Ativan available as needed for w/d symptoms. Tristen is discussing drug rehab and other services available to the patient. (3) Elevated CK: Code(s): R74.8 - Abnormal levels of other serum enzymes Status: Acute Assessment and Plan: Total CK levels have normalized. Will stop IV fluids. (4) Rash: Code(s): R21 - Rash and other nonspecific skin eruption Status: Acute Assessment and Plan: Patient does have splotchy rash on his anterior shins which he states has been there for 2 or 3 months. This rash comes and goes and is not unusual for him. However he is also has multiple erythematous some raised some not on lesions on his ankles and extremities and a few on his upper arms. Patient's rash appears to be more consistent with bug bites. Permethrin started but doubt scabies and this was stopped. Try steroid cream. (5) Schizophrenia, acute undifferentiated: Code(s): F20.3 - Undifferentiated schizophrenia Status: Acute Assessment and Plan: Patient with schizophrenia. Stable. Home meds resumed. (6) Testicular mass: Code(s): N50.89 - Other specified disorders of the male genital organs Status: Acute Assessment and Plan: Noted in the past. Repeat US ordered but patient felt that he would know if he had a testicular mass and refused the US. (7) Tobacco abuse: Code(s): Z72.0 - Tobacco use Status: Acute Assessment and Plan: The patient states that he would like to decrease and eventually stop smoking. Nicotine gum was provided per his request. DS: Summary Hospital Course Hospital Course: 32yo male with hx of IVDU, schizophrenia and is homeless here for left arm pain and swelling. Found to have cellulitis, treated with 3 days of IV antibiotics and discharged to complete a course of oral antibiotics. All symptoms resolved. CK mildly elevated at admission, this is resolved. Please see above and med rec for details. Time Spent with Patient Time attestation: Total time spent providing and/or coordinating discharge services: Exam Narrative: AF 97.6 105/54 77 16 99% ra Gen - NARD Chest - CTA bilaterally, nml RR CV - RRR S1/S2 Abd - Soft, NT/ND, Positive BS Ext - No pedal edema. Left forearm softer with mild central area of induration. neurovasc intact in the left hand Neuro - awake and alert. c
== END 2023-01-18 12:44 | disposition home or self-care (01) | DRG 383 ==
LOC: ANHED 19:10 → ANH3MED 23:39
PROVIDERS: Internal Medicine; Admitting Provider Internal Medicine; Emergency Provider Preventive Medicine Aerospace Medicine; Visit Provider Student in an Organized Health Care Education/Training Program
DX: L03.114 Cellulitis of left upper limb (principal); F15.10 Other stimulant abuse, uncomplicated; F11.10 Opioid abuse, uncomplicated; S80.862A Insect bite (nonvenomous), left lower leg, initial encounter; S80.861A Insect bite (nonvenomous), right lower leg, initial encounter; D64.9 Anemia, unspecified; E87.6 Hypokalemia; F41.9 Anxiety disorder, unspecified; R21 Rash and other nonspecific skin eruption; F20.3 Undifferentiated schizophrenia; N50.89 Other specified disorders of the male genital organs; F17.210 Nicotine dependence, cigarettes, uncomplicated; Z59.00 Homelessness unspecified; Z90.49 Acquired absence of other specified parts of digestive tract
CPT/HCPCS: 36415; 73090; 73200; 80048; 80053; 80069; 80074; 80202; 80307; 82550; 83605; 83735; 84443; 85025; 86592; 86703; 87040; 96361; 96365; 96366; 96374; 96375; 99285; A9270; G0378; G0379; G0432; J0696; J1885; J2270; J3370; J7030

== ENCOUNTER 2024-05-14 15:18 | Emergency (ER) | payer SELFPAY ==
--- NOTE | ~2024-05-14 | XR_ITS ---
CHEST RADIOGRAPH CLINICAL HISTORY: chest pain . COMPARISON: None available TECHNIQUE: Single portable view of the chest. FINDINGS The cardiomediastinal silhouette is unremarkable. The lungs are clear. Visualized osseous structures and soft tissues are unremarkable. IMPRESSION: No focal infiltrate or effusion. Reviewed, dictated and finalized at location A. ANT MACHINE OPERATOR
--- NOTE | 2024-05-14 15:20 | ECG_ITS ---
Test Date: 2024-05-14 15:23:07 Measurements Intervals [place] Rate: 161 P: 82 MD: 109 QRS: 61 QRSD: 86 T: 46 QT: 266 QTc: 436 Interpretive Statements SINUS TACHYCARDIA WITH SHORT MD INTERVAL BASELINE ARTIFACT- I, II, III, AVR, AVL ,AVF, V1, V4 ABNORMAL ECG No previous ECG available for comparison Electronically Signed On 05-14-2024 15:49:45 [employer] by Merrill Gamez D.O.
[2024-05-14 15:27] VITALS: BP 94/61; PULSE 157; RESP 22; TEMP 36.6; O2SAT 97
[2024-05-14 15:40] LABS: Hematocrit 45.1 % (42.0-52.0); Hemoglobin 15.9 g/dL (14.0-18.0); Mean Corpuscular HGB Conc 35.3 g/dl (32-36); Mean Corpuscular Hemoglobin 29.2 pg (26-34); Mean Corpuscular Volume 82.8 fl (80-100); Mean Platelet Volume 9.4 fl (7.4-10.4); Platelet Count Result 392 k/mm3 (150-375); Red Blood Count 5.45 M/mm3 (4.6-6.20); Red Cell Distribution Width 12.6 % (11.5-14.5); White Blood Count 12.4 K/mm3 (4.5-10.0)
[2024-05-14 15:46] VITALS: BP 132/89; PULSE 144; PULSE 147; RESP 12; O2SAT 98
--- NOTE | 2024-05-14 15:48 | ED.CHESTPAIN ---
HPI - Chest Pain General Chief Complaint: Chest Pain Stated Complaint: chest pain Time Seen by Provider: 05/14/24 15:44 Source: patient Mode of arrival: ambulatory Limitations: no limitations History of Present Illness HPI narrative: This is a 34-year-old male who presents to the ED for chief complaint of chest pain after using methamphetamines about 30 minutes prior to arrival. Patient reports that he was clean for several months but relapsed today due to significant life stressors. Patient reports the chest pain is in the central chest. He denies SI or HI. Denies any further complaints. States he has no other medical issues going on currently. Denies any other drug use. Related Data Home Medications Medication Instructions Recorded Confirmed trazodone 100 mg tablet 100 mg PO HS 03/16/21 01/16/23 quetiapine 50 mg tablet (Seroquel) 50 mg PO HS 06/03/21 01/16/23 Allergies Allergy/AdvReac Type Severity Reaction Status Date / Time cephalexin Allergy Unknown Unknown Verified 05/14/24 15:54 Review of Systems Review of Systems: All systems as dictated in [facility] Past Medical History Medical History (Updated 05/14/24 @ 19:11 by Dagoberto Greene PA-C) Herpes genitalia HPV in male Schizophrenia, acute undifferentiated Surgical History Surgical History (Updated 01/16/23 @ 04:50 by Xiao Zamora DO) History of appendectomy Family History Family History Other Schizophrenia, acute undifferentiated Social History Social History (Updated 01/16/23 @ 05:03 by Xiao Zamora DO) Social History: The patient reports that he has been homeless for about 3 months. He uses methamphetamines on a somewhat frequent basis. He smokes up to 1.5 packs of cigarettes per day since he was about 11 years old. He is no longer smoking cigarettes but is still vaping nicotine. He also uses marijuana on occasion. He used to drink quite heavily but quit heavy alcohol use in his mid 20s. He still drinks alcohol on occasion. He denies using any other drugs except for methamphetamines however his urine drug screen is also positive for opiates. Smoking packs per day: 1.5 Smoking cigarettes per day: 30.0 Years smoked: 18 Smoking pack-years: 27.00 Smoking status: Current some day smoker Tobacco type: cigarettes and e-cigarettes/vaping Second hand tobacco smoke exposure: Yes Alcohol intake: current Alcohol use details: He used to drink alcohol to excess until about 24 years old. Now he drinks alcohol on occasion in in moderation. Substance use: current Substance use type: marijuana and methamphetamine Last use: 01/13/23 Lack of Transportation: YES Lack of Food: Sometimes True Current Housing: I Do Not Have Housing Concerned About Future Housing: YES Difficulty Paying Gas/Electric Bills: YES Difficulty Paying for Meds: YES Currently Unemployed: No Education: High School Diploma/GED Difficulty w/ Childcare or Family Care: No Spiritual care concerns: No Exam Narrative: GENERAL: Tearful, anxious. Appears in pain HEAD: Normocephalic, atraumatic. EYES: PERRLA and EOMI. ENT: Nares clear, no rhinorrhea or epistaxis. Mucous membranes moist. Oropharynx without tonsillar hypertrophy exudate or other lesions. NECK: Supple. No adenopathy or masses. CHEST: No respiratory distress. Clear to auscultation. No wheezes rales or rhonchi HEART: Tachycardia. Regular rhythm.. No murmur heard. Normal peripheral pulses. ABDOMEN: Soft, nontender, nondistended, normal active bowel sounds. MSK: Normal range of motion. No edema. SKIN: Warm, dry, no rash. NEURO: Alert and oriented x4. No focal deficits. PSYCH: Anxious mood. Appropriate affect. Conversational and coherent. Course Reevaluation(s) Reevaluation #1: Patient is now resting comfortably. He feels significantly improved compared to arrival. Heart rate home has come down from the 150s to 110s. Date: 05/14/24 Time: 17:59 Vital Signs Vital signs: Vital Signs Temperature 98 F 05/14/24 15:27 Pulse Rate 157 H 05/14/24 15:27 Respiratory Rate 22 H 05/14/24 15:27 Blood Pressure 94/61 L 05/14/24 15:27 Pulse Oximetry 97 05/14/24 15:27 Oxygen Delivery Room Air 05/14/24 15:27 Temperature 98 F 05/14/24 15:27 Pulse Rate 122 H 05/14/24 16:39 Respiratory Rate 12 05/14/24 16:39 Blood Pressure 130/74 05/14/24 16:39 Pulse Oximetry 99 05/14/24 16:39 Oxygen Delivery Room Air 05/14/24 15:47 MDM - Chest Pain MDM Narrative Medical decision making narrative: This is a 34-year-old male who presents to the ED with chest pain after using methamphetamines. Vitals show initial tachycardia with heart rate in the 150s and slightly tachypneic. Patient is anxious on exam. Lab work showing mild leukocytosis of 12.4. CMP remarkable for slightly low bicarb and slightly elevated anion, with an elevated BUN. Suspect dehydration. Troponin is normal initially. EKG shows sinus tachycardia. Chest x-ray shows no acute findings. Patient was given 2 L of fluids and several rounds of Ativan with significant symptomatic improvement. the 3 hour troponin normal. Patient will be discharged in stable condition. Supportive measures discussed and return precautions given. Patient is understanding and agreeable with plan for discharge with PCP follow-up. Lab Data 05/14/24 15:29 05/14/24 15:29 Labs: Lab Results 05/14/24 Range/Units 15:29 WBC 12.4 H (4.5-10.0) K/mm3 RBC 5.45 (4.6-6.20) M/mm3 Hgb 15.9 D (14.0-18.0) g/dL Hct 45.1 (42.0-52.0) % MCV 82.8 (80-100) fl MCH 29.2 (26-34) pg MCHC 35.3 (32-36) g/dl RDW 12.6 (11.5-14.5) % Plt Count 392 H D (150-375) k/mm3 MPV 9.4 (7.4-10.4) fl Immature Gran % (Auto) Not Reportable Neut % (Auto) Not Reportable Lymph % (Auto) Not Reportable Hood % (Auto) Not Reportable Eos % (Auto) Not Reportable Baso % (Auto) Not Reportable Lymph # (Auto) Not Reportable Hood # (Auto) Not Reportable Eos # (Auto) Not Reportable Baso # (Auto) Not Reportable Abs Immat Gran (auto) Not Reportable Absolute Neuts (auto) Not Reportable Absolute Nucleated RBC Not Reportable Total Counted 100 Neutrophils % (Manual) 35 L (46-73) % Band Neutrophils % 0 (0-6) % Lymphocytes % (Manual) 58 H (18-44) % Monocytes % (Manual) 7 (3-9) % Eosinophils % (Manual) 0 (0-4) % Basophils % (Manual) 0 (0-1) % Nucleated RBC % Not Reportable Abs Neuts (Manual) 4.34 (1.3-6.7) K/mm3 Abs Lymphs (Manual) 7.19 H (1.1-4.5) K/mm3 Abs Monocytes (Manual) 0.86 (0.1-0.90) K/mm3 Absolute Eos (Manual) 0.00 L (0.02-0.50) K/mm3 Abs Basophils (Manual) 0.00 (0.0-0.1) K/mm3 Platelet Estimate Slightly increased (Adequate) Clumped Platelets Present Microcytosis 1+ (NORMAL) Schistocytes None seen PT 14.2 (11.1-14.7) Seconds INR 1.0 APTT 25.9 (22.3-36.8) Seconds Sodium 135 L (137-145) mmol/L Potassium 3.7 (3.4-5.0) mmol/L Chloride 103 (98-107) mmol/L Carbon Dioxide 19 L (22-30) mmol/L Anion Gap 13 H (4-12) mmol/L BUN 26 H (9-20) mg/dL Creatinine 1.40 H (0.7-1.3) mg/dL Estim Creat Clear Calc 62 ml/min Estimated GFR 58 L (59 - ) Glucose 175 H (65-110) mg/dL Calcium 8.8 (8.4-10.2) mg/dL Total Bilirubin 0.6 (0.2-1.3) mg/dL AST 24 (17-59) U/L ALT 14 (6-50) U/L Alkaline Phosphatase 69 (38-126) U/L Troponin I < 0.012 (0.000-0.034) ng/mL Total Protein 8.0 (6.3-8.2) g/dL Albumin 4.3 (3.5-5.1) g/dL Lipase 157 (23-300) U/L ECG Data EKG #1: ECG completion date: 05/14/24 ECG completion time: 15:23 Prior ECG tracings: not available for review Interpretation: Sinus tachycardia with short VT Rate 161 QTC normal Normal QRS No acute ischemia Discharge Plan Discharge Clinical Impression: Drug abuse, amphetamine type, Chest pain Patient Disposition: Home, Self-Care Condition: Stable Instructions: Antibiotic Form Additional Instructions: Your exam and imaging today are reassuring. Please refrain using methamphetamines to avoid further episodes like this. If you have any new or worsening symptoms please return to the ER for further evaluation. Prescriptions: No Action trazodone 100 mg tablet 100 mg PO HS quetiapine [Seroquel] 50 mg tablet 50 mg PO HS doxycycline monohydrate 100 mg capsule 100 mg PO BID 5 Days Qty: 10 0RF Follow-up/Referrals: PHYSICIAN,TENTERING MACHINE OFF BEARER [Non-Staff] - Time of Disposition: 19:11
[2024-05-14] MEDS: SODIUM CHLORIDE 0.9% IV 1,000 ML 999 ML IV CONT (15:54)
[2024-05-14] MEDS: LORazepam INJ (*CRX) 2 MG/ML VIAL 1 MG IV PUSH (15:54)
[2024-05-14 15:55] LABS: Prothrombin Time 14.2 Seconds (11.1-14.7)
[2024-05-14 15:56] LABS: Partial Thromboplastin Time 25.9 Seconds (22.3-36.8)
--- NOTE | 2024-05-14 15:57 | PC.NURSE ---
pt unable to provide urine sample at this time. will hit call light when able to go.
[2024-05-14 16:01] LABS: Alanine Aminotransferase 14 U/L (6-50); Albumin Level 4.3 g/dL (3.5-5.1); Alkaline Phosphatase 69 U/L (38-126); Anion Gap 13 mmol/L (4-12); Aspartate Amino Transferase 24 U/L (17-59); Bilirubin,Total 0.6 mg/dL (0.2-1.3); Blood Urea Nitrogen 26 mg/dL (9-20); Calcium 8.8 mg/dL (8.4-10.2); Carbon Dioxide 19 mmol/L (22-30); Chloride 103 mmol/L (98-107); Estimated CRCL calculation 62 ml/min; Estimated Glomerular Filt Rate 58; Glucose 175 mg/dL (65-110); Lipase 157 U/L (23-300); Potassium 3.7 mmol/L (3.4-5.0); Sodium 135 mmol/L (137-145)
[2024-05-14 16:09] LABS: Band Neutrophils Percent 0 % (0-6); Basophils Percent Manual 0 % (0-1); Eosinophils Percent Manual 0 % (0-4); Lymphocytes Absolute Manual 7.19 K/mm3 (1.1-4.5); Lymphocytes Percent Manual 58 % (18-44); Monocytes Absolute Manual 0.86 K/mm3 (0.1-0.90); Monocytes Percent Manual 7 % (3-9); Neutrophils Absolute Manual 4.34 K/mm3 (1.3-6.7); Neutrophils Percent Manual 35 % (46-73); Platelet Clumps Present; Platelet Estimate Slightly Increased (Adequate); Total Cells Counted 100
[2024-05-14 16:11] LABS: Microcytosis 1+ (NORMAL); Schistocytes None Seen
[2024-05-14 16:20] LABS: Troponin I < 0.012 ng/mL (0.000-0.034)
[2024-05-14] MEDS: LACTATED RINGERS 1,000 ML 999 ML IV CONT (16:37)
[2024-05-14] MEDS: LORazepam INJ (*CRX) 2 MG/ML VIAL 0.5 MG IV PUSH ×2 (16:37→17:36)
[2024-05-14 16:39] VITALS: BP 130/74; PULSE 122; RESP 12; O2SAT 99
[2024-05-14 18:24] VITALS: BP 102/64; PULSE 120; RESP 16; O2SAT 99
--- NOTE | 2024-05-14 18:27 | ECG_ITS ---
Test Date: 2024-05-14 18:33:15 Measurements Intervals [place] Rate: 115 P: 72 [place]: 150 QRS: 52 QRSD: 85 T: 53 QT: 303 QTc: 420 Interpretive Statements SINUS TACHYCARDIA BASELINE ARTIFACT- I, II, III, AVR, AVL, AVF ABNORMAL ECG Compared to ECG 05/14/2024 15:23:07 HEART RATE HAS DECREASED Short [place] interval no longer present Electronically Signed On 05-14-2024 20:30:49 [employer] by Merrill Gamez D.O.
[2024-05-14 18:51] LABS: Add Urine Microscopic? YES; Appearance Urine Clear (Clear); Bacteria Urine None Seen /hpf; Bilirubin Urine Negative (Negative); Blood Urine Negative (Negative); Color Urine Yellow (Yellow); Glucose Urine UA Negative (Negative); Hyaline Casts Urine Present /lpf; Ketones Urine Trace mg/dL (Negative); Leukocyte Esterase Ur Negative LEU/UL (Negative); Need Manual Microscopic Reviewed; Nitrate Urine Negative (Negative); Protein Urine 1+ mg/dL (Negative); RBC Urine 0-2 /hpf (0-2); Specific Grav Ur 1.028 (1.001-1.035); Squamous Epithelial Cell Urine None Seen /hpf (Few); WBC Urine 0-5 /hpf (0-3)
[2024-05-14 18:53] LABS: Barbiturate Screen Urine Negative (Negative); Benzodiazepines Screen Urine Negative (Negative)
[2024-05-14 19:06] LABS: Cannabinoid Screen Urine Negative (Negative); Cocaine Screen Urine Negative (Negative); Methadone Screen Urine Negative (Negative); Opiate Screen Urine Negative (Negative); Phencyclidine Screen Urine Negative (Negative)
[2024-05-14 19:09] LABS: Troponin I < 0.012 ng/mL (0.000-0.034)
[2024-05-14 19:26] VITALS: BP 106/56; PULSE 104; RESP 15; O2SAT 100
[2024-05-14 20:14] LABS: Amphetamine Screen Urine Positive (Negative)
== END 2024-05-14 19:28 | disposition home or self-care (01) ==
PROVIDERS: Emergency Medicine; Emergency Provider Physician Assistant
DX: R07.9 Chest pain, unspecified (principal); F15.10 Other stimulant abuse, uncomplicated; F20.3 Undifferentiated schizophrenia; F17.210 Nicotine dependence, cigarettes, uncomplicated; F17.290 Nicotine dependence, other tobacco product, uncomplicated; Z79.899 Other long term (current) drug therapy; R00.0 Tachycardia, unspecified
CPT/HCPCS: 36415; 71045; 80053; 80307; 81001; 83690; 84484; 85025; 85610; 85730; 93005; 96361; 96374; 96376; 99284; J2060; J7030; J7120

== ENCOUNTER 2024-06-02 11:14 | Emergency (ER) | payer SELFPAY ==
[2024-06-02 11:23] VITALS: BP 132/93; PULSE 131; RESP 22; TEMP 36.5; O2SAT 97
[2024-06-02 12:35] VITALS: RESP 20
--- NOTE | 2024-06-02 13:00 | PC.NURSE ---
Nurse called [facility] for resources and help with detox and substance abuse. [facility] provided a phone number for Crisis Unit Detox. Resources and numbers to call and f/u for Detox given to the pt. Pt said thanks and left without seen by the provider.
== END 2024-06-02 13:20 | disposition left against medical advice (07) ==
LOC: ANHED 13:22
DX: F41.9 Anxiety disorder, unspecified (principal)
CPT/HCPCS: 99199

== ENCOUNTER 2024-10-26 01:14 | Emergency (ER) | payer OTHER, SELFPAY ==
[2024-10-26 01:23] VITALS: BP 150/100; PULSE 127; RESP 14; O2SAT 100
--- NOTE | 2024-10-26 02:23 | ED.PSYCH ---
HPI - Psych General Chief Complaint: Psychiatric Symptoms Stated Complaint: psych Time Seen by Provider: 10/26/24 01:59 History of Present Illness HPI Narrative: 34-year-old male with history of amphetamine abuse presents to the ED for multiple medical complaints. Originally patient was transported to the ED for anxiety and ?feeling overstimulated?. Patient arrived accompanied by at [facility] the found the patient sitting in a public parking lot. PD performed a welfare check and after speaking with the patient he was reportedly requesting mental health services. Upon arrival to the ED the patient states he needs a primary care physician to sort through his medical records with him. He denies SI or HI, auditory or visual hallucinations. He does express paranoid delusions and instead he waits that people are listening into our conversation. He also notes several times that there is a large sum of money within the family and he is asking for only 10% of it. He states he lives at home with his stepfather. Also notes he has a job in the morning and he does not want to miss work. He admits to marijuana and occasional alcohol use. Denies any EtOH today. Patient states he is not taking any medications. Related Data Home Medications ?Medication ?Instructions ?Recorded ?Confirmed ?Last Taken ?Type trazodone 100 mg tablet 100 mg PO HS 03/16/21 01/16/23 01/13/23 21:00 History quetiapine 50 mg tablet (Seroquel) 50 mg PO HS 06/03/21 01/16/23 Unknown History Allergies Allergy/AdvReac Type Severity Reaction Status Date / Time cephalexin Allergy Unknown Unknown Verified 06/02/24 11:26 Review of Systems Review of Systems: All systems reviewed & are unremarkable except as noted in HPI and below PMFSH Past Medical History Medical History Herpes genitalia HPV in male Schizophrenia, acute undifferentiated Surgical History Surgical History History of appendectomy Family History Family History Other Schizophrenia, acute undifferentiated Social History Social History Social History: The patient reports that he has been homeless for about 3 months. He uses methamphetamines on a somewhat frequent basis. He smokes up to 1.5 packs of cigarettes per day since he was about 11 years old. He is no longer smoking cigarettes but is still vaping nicotine. He also uses marijuana on occasion. He used to drink quite heavily but quit heavy alcohol use in his mid 20s. He still drinks alcohol on occasion. He denies using any other drugs except for methamphetamines however his urine drug screen is also positive for opiates. Smoking packs per day: 1.5 Smoking cigarettes per day: 30.0 Years smoked: 18 Smoking pack-years: 27.00 Smoking status: Current some day smoker Tobacco type: cigarettes and e-cigarettes/vaping Second hand tobacco smoke exposure: Yes Alcohol intake: current Alcohol use details: He used to drink alcohol to excess until about 24 years old. Now he drinks alcohol on occasion in in moderation. Substance use: current Substance use type: unknown Last use: 01/13/23 Lack of Transportation: YES Lack of Food: Sometimes True Current Housing: I Do Not Have Housing Concerned About Future Housing: YES Difficulty Paying Gas/Electric Bills: YES Difficulty Paying for Meds: YES Currently Unemployed: No Education: High School Diploma/GED Difficulty w/ Childcare or Family Care: No Spiritual care concerns: No Exam Narrative: GENERAL: Anxious appearing, NAD HEAD: Normocephalic, atraumatic. EYES: EOMI. Dilated pupils bilaterally ENT: Nares clear, no rhinorrhea or epistaxis. Mucous membranes moist. NECK: Supple. CHEST: Clear to auscultation. No respiratory distress. EXTREMITIES: Normal range of motion. No edema. SKIN: Warm, dry, no rash. NEURO: No focal deficits. Alert and oriented x4 PSYCH: Anxious, paranoid, agitated. Not responding to internal stimuli. Denies SI and HI. Course Vital Signs Vital signs: Vital Signs Pulse Rate 127 H 10/26/24 01:23 Respiratory Rate 14 10/26/24 01:23 Blood Pressure 150/100 H 10/26/24 01:23 Pulse Oximetry 100 10/26/24 01:23 Oxygen Delivery Room Air 10/26/24 01:23 Temperature 97.5 F L 10/26/24 02:50 Pulse Rate 113 H 10/26/24 02:50 Respiratory Rate 18 10/26/24 02:50 Blood Pressure 138/80 10/26/24 02:50 Pulse Oximetry 99 10/26/24 02:50 Oxygen Delivery Room Air 10/26/24 01:23 MDM - Psych MDM Narrative Medical decision making narrative: 34-year-old male with history of amphetamine abuse presents to the emergency department after being found in his car in a public parking lot by PD and PD performed a welfare check. Reportedly the patient was requesting ?mental health resources?. Upon arrival to the ED the patient is anxious, agitated and paranoid. Vitals are remarkable for tachycardia 127bpm and hypertension which has since improved. He denies SI or HI repeatedly and is not responding to internal stimuli. He is A&O x4. He is requesting a referral to a primary care physician to help ?sort out my medical records?. Per chart review, patient was once on Seroquel for schizophrenia but has been off of this for while because he did not like the way it made him feel. I did offer to obtain lab work and have crisis evaluate the patient however he declined and states he needs to get home so he can make it to work on time in the morning. Overall, I suspect methamphetamine abuse as patient's source of symptoms today. Pt was provided PCP referral and given outpatient psychiatric follow up as well. He was given strict ED return precautions. Discharged in stable condition. Discharge Plan Discharge Clinical Impression: Anxiety Patient Disposition: Home Condition: Stable Instructions: Antibiotic Form, Anxiety (ED) Additional Instructions: Please follow-up with the primary care provider and referred you to. Return to the emergency department if you develop thoughts of harming yourself or other people, or other concerning symptoms. Patient Language: Macedonian Prescriptions: No Action trazodone 100 mg tablet 100 mg PO HS quetiapine [Seroquel] 50 mg tablet 50 mg PO HS doxycycline monohydrate 100 mg capsule 100 mg PO BID 5 Days Qty: 10 0RF valacyclovir [Valtrex] 1 gram tablet 1,000 mg PO Q12H Qty: 14 0RF Follow-up/Referrals: Jesus Menendez MD [Physician] - UNKNOWN,DOCTOR [Primary Care Provider] -
[2024-10-26 02:50] VITALS: BP 138/80; PULSE 113; RESP 18; TEMP 36.4; O2SAT 99
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
== END 2024-10-26 03:14 | disposition home or self-care (01) ==
PROVIDERS: Emergency Provider Physician Assistant
DX: F41.9 Anxiety disorder, unspecified (principal); F15.10 Other stimulant abuse, uncomplicated; F23 Brief psychotic disorder; Z59.00 Homelessness unspecified; F17.210 Nicotine dependence, cigarettes, uncomplicated; F17.290 Nicotine dependence, other tobacco product, uncomplicated
CPT/HCPCS: 99281